=== PATIENT | male | born 1960 | race Caucasian/White ===

== ENCOUNTER 2022-07-21 15:29 | Inpatient (IN) | payer OTHER, SELFPAY ==
[2022-07-21] VITALS (12 sets, daily range): BP systolic 108–145; BP diastolic 62–86; PULSE 59–82; RESP 12–23; TEMP 35.8–36.7; O2SAT 92–98; BMI 28.0
--- NOTE | 2022-07-21 15:42 | DI.CT.S_ITS ---
PROCEDURE: CT LE LT W CON INDICATIONS: wound with concern for osteomyelitis TECHNIQUE: After the administration of intravenous contrast, 3 mm axial sections acquired of the left foot and ankle, with coronal and sagittal reformats. COMPARISON: None. FINDINGS: Image quality: Excellent. Bones: Alignment of left foot and ankle is anatomic. No acute fracture or dislocation. Mild osteoarthritic changes are noted throughout left foot and ankle joints. No suspicious bony lesion. There is subtle radiolucency and very subtle cortical erosion involving plantar aspect of 5th metatarsal head concerning for osteomyelitis in this area. No other area of bony erosion is seen. Small plantar and dorsal calcaneal enthesophytes are noted. Soft tissues: Ulceration over plantar aspect of forefoot at the level of 5th metatarsal shaft and head is seen. There is peripherally enhancing fluid collection deep to the ulceration and measures up to 3.2 x 0.6 x 1.4 cm in size concerning for abscess collection in this area. No other area of abnormal soft tissue enhancement is seen. No full-thickness tendon rupture. Plantar fascia is intact. Achilles tendon is intact. IMPRESSION: 1. Ulceration and suggestion of small abscess collection over plantar aspect of lateral forefoot near 5th metatarsal shaft and head. 2. Finding is concerning for early osteomyelitis involving plantar aspect of 5th metatarsal head. 3. No fracture or dislocation. Left foot osteoarthritis. No suspicious bony lesion. Dictated by: Joshua Young M.D. on 07/21/2022 at 16:52 Approved by: Joshua Young M.D. on 07/21/2022 at 16:56
--- NOTE | 2022-07-21 15:57 | ED.WOUNDLAC ---
HPI - Wound/Laceration <JENNIFFER Clark - Last Filed: 07/21/22 19:17> General Chief Complaint: Wound/Laceration Stated Complaint: lt foot infection, sent by Dr Campos Time Seen by Provider: 07/21/22 15:33 Source: patient Mode of arrival: Ambulatory History of Present Illness HPI narrative: This is a 61-year-old male with history of hereditary hemochromatosis, porphyria cutanea tarda, type 2 diabetes on metformin, hypertension on lisinopril and metoprolol, hyperlipidemia on atorvastatin and daily baby aspirin, actinic keratoses, surgical removal of multiple skin cancers, who presents to the emergency department today after his Podiatry appointment with Dr. Campos for his left foot wound. Dr. Campos sent patient with a disc with x-rays on it, but they were not low audible in the system. Patient reports that he has a significant infection in his left foot and was sent here for evaluation of this. Patient denies recent fever or chills, nausea or vomiting. Patient has history of elevated ferritin and has had therapeutic phlebotomies in the past and predicted to need this every 2-3 months. Related Data Home Medications Medication Instructions Recorded Confirmed aspirin 81 mg tablet,delayed 81 mg PO DAILY 08/26/20 07/22/22 release atenolol 50 mg tablet 50 mg PO DAILY 08/26/20 07/22/22 lisinopril 20 mg tablet 20 mg PO DAILY 08/26/20 07/22/22 metformin 500 mg tablet,extended 1,000 mg PO DAILY 08/26/20 07/22/22 release 24 hr atorvastatin 20 mg tablet (Lipitor) 20 mg PO DAILY 10/21/21 07/22/22 empagliflozin 10 mg tablet 20 mg PO DAILY 07/22/22 07/22/22 (Jardiance) pregabalin 75 mg capsule 150 mg 07/22/22 Allergies Allergy/AdvReac Type Severity Reaction Status Date / Time No Known Drug Allergies Allergy Verified 08/26/20 16:22 Review of Systems <JENNIFFER Clark - Last Filed: 07/21/22 19:17> Review of Systems Narrative: Review of systems is negative for acute abnormalities unless otherwise noted in HPI Patient History <JENNIFFER Clark - Last Filed: 07/21/22 19:17> Social History marital status: household members: spouse lives independently: Yes occupational status: employed Smoking Status: Former smoker alcohol intake: former Smoking Status: Never smoker alcohol intake frequency: other Substance Use Type: does not use Exam <JENNIFFER Clark - Last Filed: 07/21/22 19:17> Narrative Exam Narrative: Reviewed vitals signs and nursing notes. General: cooperative, comfortable, in no acute distress, well groomed HEENT: symmetrical facial expressions, moist mucous membranes Cardiovascular: regular rate and rhythm, no peripheral edema, warm extremities Respiratory: normal effort, able to speak in complete sentences, without wheezing, stridor, or abnormal breath sounds. No retractions or tachypnea. GI: abdomen soft, nontender to palpation, nondistended, without masses, rebound tenderness or exquisite tenderness with exam. MSK: moves all extremities, neurovascularly intact, no weakness, normal tone Skin: brisk capillary refill, without pallor or erythema Neuro: normal speech and cognition, A&O x3, ambulatory, clear speech Psych: mental status is grossly normal, congruent mood, normal affect, pleasant and cooperative Initial Vital Signs Initial Vital Signs: Vital Signs Temperature 98.1 F 07/21/22 15:33 Pulse Rate 74 07/21/22 15:33 Respiratory Rate 18 07/21/22 15:33 Blood Pressure 145/86 H 07/21/22 15:33 Pulse Oximetry 97 07/21/22 15:33 Oxygen Delivery Method 07/21/22 15:33 <Geronimo Grey DO - Last Filed: 07/22/22 01:54> Narrative Exam Narrative: Reviewed vitals signs and nursing notes. General: cooperative, comfortable, in no acute distress, well groomed HEENT: symmetrical facial expressions, moist mucous membranes Cardiovascular: regular rate and rhythm, no peripheral edema, warm extremities Respiratory: normal effort, able to speak in complete sentences, without wheezing, stridor, or abnormal breath sounds. No retractions or tachypnea. GI: abdomen soft, nontender to palpation, nondistended, without masses, rebound tenderness or exquisite tenderness with exam. MSK: moves all extremities, neurovascularly intact, no weakness, normal tone Skin: brisk capillary refill, without pallor or erythema Neuro: normal speech and cognition, A&O x3, ambulatory, clear speech Psych: mental status is grossly normal, congruent mood, normal affect, pleasant and cooperative Initial Vital Signs Initial Vital Signs: Vital Signs Temperature 98.1 F 07/21/22 15:33 Pulse Rate 74 07/21/22 15:33 Respiratory Rate 18 07/21/22 15:33 Blood Pressure 145/86 H 07/21/22 15:33 Pulse Oximetry 97 07/21/22 15:33 Oxygen Delivery Method 07/21/22 15:33 Course <JENNIFFER Clark - Last Filed: 07/21/22 19:17> Orders Ordered: ED Orders 07/21/22 17:11 Consult to Orthopedic Surgery Stat 07/21/22 17:27 XR foot LT min 3V Stat 07/21/22 17:56 Blood Culture Stat COVID19 -Nasal RAPID/Pre-Proc Stat 07/21/22 20:43 Consult to Occupational Therapy Evaluate & Treat Consult to Physical Therapy Evaluate & Treat 07/22/22 05:00 BMP [Basic Metabolic Panel] DAILY CBC Auto Diff [Complete Blood Count AUTO DIFF] DAILY 07/23/22 05:00 BMP [Basic Metabolic Panel] DAILY CBC Auto Diff [Complete Blood Count AUTO DIFF] DAILY 07/24/22 05:00 BMP [Basic Metabolic Panel] DAILY CBC Auto Diff [Complete Blood Count AUTO DIFF] DAILY Acetaminophen (Acetaminophen 325 Mg Tablet) 325 mg PO Q6HR PRN PRN Reason: Fever/Mild Pain (1-3) Hydrocodone Bitart/Acetaminophen (Hydrocodone/Acet 5/325 Tablet) 1 tab PO Q4HR PRN PRN Reason: Pain, Moderate (4-6) Last Admin: 07/21/22 18:07 Dose: 1 tab Documented By: CATIA Atenolol (Atenolol 50 Mg Tablet) 50 mg PO DAILY [facility] Atorvastatin Calcium (Atorvastatin 20 Mg Tablet) 20 mg PO DAILY [facility] Dextrose (Dextrose 50 % In Water 25 Gm/50 Ml Syringe) 25 gm IV PRN PRN PRN Reason: Hypoglycemia Dextrose (Dextrose 50 % In Water 25 Gm/50 Ml Syringe) 25 gm IV PRN PRN PRN Reason: Hypoglycemia Docusate Sodium (Docusate 100 Mg Capsule) 100 mg PO BID [facility] Last Admin: 07/21/22 22:40 Dose: 100 mg Documented By: Duloxetine HCl (Duloxetine 20 Mg Capsule) 40 mg PO DAILY [facility] Heparin Sodium (Porcine) (Heparin 5,000 Unit/Ml Vial) 5,000 unit SUBCUT BID [facility] Last Admin: 07/21/22 22:41 Dose: 5,000 unit Documented By: Hydromorphone HCl (Hydromorphone 1 Mg Inj) 0.2 mg IV Q1H PRN PRN Reason: Pain, Mild (1-3) Metronidazole (Flagyl) 500 mg in 100 mls @ 100 mls/hr IV Q8H [facility] Last Admin: 07/21/22 18:29 Dose: 100 mls/hr Documented By: CATIA Cefepime HCl 2 gm/ Sodium (Chloride) 100 mls @ 200 mls/hr IV Q8H [facility] Last Admin: 07/22/22 01:35 Dose: 200 mls/hr Documented By: Infusion: 07/21/22 18:28 Dose: 0 mls/hr Documented By: Admin: 07/21/22 17:58 Dose: 200 mls/hr Documented By: CATIA Lactated Ringer's (Lactated Ringers) 1,000 mls @ 42 mls/hr IV NOW ONE Stop: 07/22/22 19:17 Last Infusion: 07/21/22 20:39 Dose: 42 mls/hr Documented By: Admin: 07/21/22 19:30 Dose: 42 mls/hr Documented By: LYNDSAY Vancomycin HCl/Dextrose (Vancomycin) 2,000 mg in 400 mls @ 200 mls/hr IV Q12H [facility] Insulin Human Lispro (Insulin Lispro 100 Unit/Ml 3ml Vial) 0 unit SUBCUT [facility]; Protocol Last Admin: 07/21/22 22:28 Dose: Not Given Documented By: Insulin Human Lispro (Insulin Lispro 100 Unit/Ml 3ml Vial) 0 unit SUBCUT ACHS [facility]; Protocol Last Admin: 07/21/22 22:30 Dose: Not Given Documented By: Lisinopril (Lisinopril 20 Mg Tablet) 20 mg PO DAILY [facility] Naloxone HCl (Naloxone 0.4 Mg/Ml Vial) 0.2 mg IV Q2MIN PRN PRN Reason: Opiate Reversal Ondansetron HCl (Ondansetron 4 Mg Odt) 4 mg PO Q4HR PRN PRN Reason: Nausea And Vomiting Ondansetron HCl (Ondansetron 4 Mg/2 Ml Inj) 4 mg IV Q4HR PRN PRN Reason: Nausea And Vomiting Oxycodone HCl (Oxycodone Ir 5 Mg Tablet) 5 mg PO Q3HR PRN PRN Reason: Pain, Mild (1-3) Discontinued Medications Acetaminophen (Acetaminophen 325 Mg Tablet) 975 mg PO PACUNOW PRN PRN Reason: Pain, Mild (1-3) Bupivacaine HCl/Epinephrine Bitart (Bupivacaine 0.5% W/ Epi (Pf) 30 Ml Vial) 30 ml INJ NOW ONE Stop: 07/21/22 20:19 Last Admin: 07/21/22 20:19 Dose: 10 ml Documented By: CC Dextrose (Dextrose 50 % In Water 25 Gm/50 Ml Syringe) 25 gm IV PRN PRN PRN Reason: Hypoglycemia Hydromorphone HCl (Hydromorphone 2 Mg Inj) 0 mg IV Q5M PRN PRN Reason: Pain, Moderate (4-6) Vancomycin HCl (Vancomycin) 1,250 mg in 250 mls @ 250 mls/hr IV Q12H [facility] Vancomycin HCl (Vancomycin) 1,000 mg in 200 mls @ 200 mls/hr IV NOW ONE Stop: 07/21/22 20:15 Last Admin: 07/21/22 19:30 Dose: 200 mls/hr Documented By: LYNDSAY Vancomycin HCl (Vancomycin) 1,250 mg in 250 mls @ 250 mls/hr IV Q12H [facility] Vancomycin HCl (Vancomycin) 1,000 mg in 200 mls @ 200 mls/hr IV NOW ONE Stop: 07/21/22 21:09 Last Admin: 07/21/22 19:25 Dose: 200 mls/hr Documented By: COURTNEY Vancomycin HCl (Vancomycin) 1,000 mg in 200 mls @ 200 mls/hr IV NOW ONE Stop: 07/21/22 22:59 Last Infusion: 07/22/22 00:00 Dose: 0 mls/hr Documented By: Admin: 07/21/22 22:41 Dose: 200 mls/hr Documented By: Ondansetron HCl (Ondansetron 4 Mg/2 Ml Inj) 4 mg IV NOW PRN PRN Reason: Nausea And Vomiting Oxycodone HCl (Oxycodone Ir 5 Mg Tablet) 5 mg PO PACUNOW PRN PRN Reason: Mild or moderate pain Vancomycin HCl (Vancomycin Per Pharmacy) 1 request MISC NOW ONE Stop: 07/21/22 17:32 Last Admin: 07/21/22 22:49 Dose: Not Given Documented By: Vancomycin HCl (Vancomycin Trough) 1 request MISC NOW ONE Stop: 07/23/22 06:31 Consultations Consultation #1: Consultation with Dr. Sneed at 17:15 who accepts patient and will take to surgery tonight. Patient has been NPO since 11:00 o'clock, she requests x-ray images of patient's foot Vital Signs Vital signs: Vital Signs - 8 hr 07/21/22 15:33 Temperature 98.1 F Pulse Rate 74 Respiratory Rate 18 Blood Pressure 145/86 H Pulse Oximetry 97 Oxygen Delivery Method Room Air <Geronimo Grey DO - Last Filed: 07/22/22 01:54> Orders Ordered: ED Orders 07/21/22 17:11 Consult to Orthopedic Surgery Stat 07/21/22 17:27 XR foot LT min 3V Stat 07/21/22 17:56 Blood Culture Stat COVID19 -Nasal RAPID/Pre-Proc Stat 07/21/22 20:43 Consult to Occupational Therapy Evaluate & Treat Consult to Physical Therapy Evaluate & Treat 07/22/22 05:00 BMP [Basic Metabolic Panel] DAILY CBC Auto Diff [Complete Blood Count AUTO DIFF] DAILY 07/23/22 05:00 BMP [Basic Metabolic Panel] DAILY CBC Auto Diff [Complete Blood Count AUTO DIFF] DAILY 07/24/22 05:00 BMP [Basic Metabolic Panel] DAILY CBC Auto Diff [Complete Blood Count AUTO DIFF] DAILY Acetaminophen (Acetaminophen 325 Mg Tablet) 325 mg PO Q6HR PRN PRN Reason: Fever/Mild Pain (1-3) Hydrocodone Bitart/Acetaminophen (Hydrocodone/Acet 5/325 Tablet) 1 tab PO Q4HR PRN PRN Reason: Pain, Moderate (4-6) Last Admin: 07/21/22 18:07 Dose: 1 tab Documented By: CATIA Atenolol (Atenolol 50 Mg Tablet) 50 mg PO DAILY [facility] Atorvastatin Calcium (Atorvastatin 20 Mg Tablet) 20 mg PO DAILY [facility] Dextrose (Dextrose 50 % In Water 25 Gm/50 Ml Syringe) 25 gm IV PRN PRN PRN Reason: Hypoglycemia Dextrose (Dextrose 50 % In Water 25 Gm/50 Ml Syringe) 25 gm IV PRN PRN PRN Reason: Hypoglycemia Docusate Sodium (Docusate 100 Mg Capsule) 100 mg PO BID [facility] Last Admin: 07/21/22 22:40 Dose: 100 mg Documented By: Duloxetine HCl (Duloxetine 20 Mg Capsule) 40 mg PO DAILY [facility] Heparin Sodium (Porcine) (Heparin 5,000 Unit/Ml Vial) 5,000 unit SUBCUT BID [facility] Last Admin: 07/21/22 22:41 Dose: 5,000 unit Documented By: Hydromorphone HCl (Hydromorphone 1 Mg Inj) 0.2 mg IV Q1H PRN PRN Reason: Pain, Mild (1-3) Metronidazole (Flagyl) 500 mg in 100 mls @ 100 mls/hr IV Q8H [facility] Last Admin: 07/21/22 18:29 Dose: 100 mls/hr Documented By: CATIA Cefepime HCl 2 gm/ Sodium (Chloride) 100 mls @ 200 mls/hr IV Q8H [facility] Last Admin: 07/22/22 01:35 Dose: 200 mls/hr Documented By: Infusion: 07/21/22 18:28 Dose: 0 mls/hr Documented By: Admin: 07/21/22 17:58 Dose: 200 mls/hr Documented By: CATIA Lactated Ringer's (Lactated Ringers) 1,000 mls @ 42 mls/hr IV NOW ONE Stop: 07/22/22 19:17 Last Infusion: 07/21/22 20:39 Dose: 42 mls/hr Documented By: Admin: 07/21/22 19:30 Dose: 42 mls/hr Documented By: LYNDSAY Vancomycin HCl/Dextrose (Vancomycin) 2,000 mg in 400 mls @ 200 mls/hr IV Q12H [facility] Insulin Human Lispro (Insulin Lispro 100 Unit/Ml 3ml Vial) 0 unit SUBCUT ACHS [facility]; Protocol Last Admin: 07/21/22 22:28 Dose: Not Given Documented By: Insulin Human Lispro (Insulin Lispro 100 Unit/Ml 3ml Vial) 0 unit SUBCUT ACHS [facility]; Protocol Last Admin: 07/21/22 22:30 Dose: Not Given Documented By: Lisinopril (Lisinopril 20 Mg Tablet) 20 mg PO DAILY [facility] Naloxone HCl (Naloxone 0.4 Mg/Ml Vial) 0.2 mg IV Q2MIN PRN PRN Reason: Opiate Reversal Ondansetron HCl (Ondansetron 4 Mg Odt) 4 mg PO Q4HR PRN PRN Reason: Nausea And Vomiting Ondansetron HCl (Ondansetron 4 Mg/2 Ml Inj) 4 mg IV Q4HR PRN PRN Reason: Nausea And Vomiting Oxycodone HCl (Oxycodone Ir 5 Mg Tablet) 5 mg PO Q3HR PRN PRN Reason: Pain, Mild (1-3) Discontinued Medications Acetaminophen (Acetaminophen 325 Mg Tablet) 975 mg PO PACUNOW PRN PRN Reason: Pain, Mild (1-3) Bupivacaine HCl/Epinephrine Bitart (Bupivacaine 0.5% W/ Epi (Pf) 30 Ml Vial) 30 ml INJ NOW ONE Stop: 07/21/22 20:19 Last Admin: 07/21/22 20:19 Dose: 10 ml Documented By: JUAN JOSE Dextrose (Dextrose 50 % In Water 25 Gm/50 Ml Syringe) 25 gm IV PRN PRN PRN Reason: Hypoglycemia Hydromorphone HCl (Hydromorphone 2 Mg Inj) 0 mg IV Q5M PRN PRN Reason: Pain, Moderate (4-6) Vancomycin HCl (Vancomycin) 1,250 mg in 250 mls @ 250 mls/hr IV Q12H [facility] Vancomycin HCl (Vancomycin) 1,000 mg in 200 mls @ 200 mls/hr IV NOW ONE Stop: 07/21/22 20:15 Last Admin: 07/21/22 19:30 Dose: 200 mls/hr Documented By: LYNDSAY Vancomycin HCl (Vancomycin) 1,250 mg in 250 mls @ 250 mls/hr IV Q12H [facility] Vancomycin HCl (Vancomycin) 1,000 mg in 200 mls @ 200 mls/hr IV NOW ONE Stop: 07/21/22 21:09 Last Admin: 07/21/22 19:25 Dose: 200 mls/hr Documented By: COURTNEY Vancomycin HCl (Vancomycin) 1,000 mg in 200 mls @ 200 mls/hr IV NOW ONE Stop: 07/21/22 22:59 Last Infusion: 07/22/22 00:00 Dose: 0 mls/hr Documented By: Admin: 07/21/22 22:41 Dose: 200 mls/hr Documented By: Ondansetron HCl (Ondansetron 4 Mg/2 Ml Inj) 4 mg IV NOW PRN PRN Reason: Nausea And Vomiting Oxycodone HCl (Oxycodone Ir 5 Mg Tablet) 5 mg PO PACUNOW PRN PRN Reason: Mild or moderate pain Vancomycin HCl (Vancomycin Per Pharmacy) 1 request MISC NOW ONE Stop: 07/21/22 17:32 Last Admin: 07/21/22 22:49 Dose: Not Given Documented By: Vancomycin HCl (Vancomycin Trough) 1 request MISC NOW ONE Stop: 07/23/22 06:31 Vital Signs Vital signs: Vital Signs - 8 hr 07/21/22 15:33 Temperature 98.1 F Pulse Rate 74 Respiratory Rate 18 Blood Pressure 145/86 H Pulse Oximetry 97 Oxygen Delivery Method Room Air MDM - Wound/Laceration <JENNIFFER Clark - Last Filed: 07/21/22 19:17> Lab Data Result diagrams: 07/21/22 16:20 07/21/22 16:20 Labs: Lab Results 07/21/22 07/21/22 07/21/22 Range/Units 16:20 16:20 16:20 WBC 8.3 (4.5-11.0) X10^3/uL RBC 4.97 (4.5-5.9) X10^6/uL Hgb 16.1 (13.5-17.5) g/dL Hct 47.3 (41-53) % MCV 95.2 (80-100) fL MCH 32.5 (26-34) PG MCHC 34.1 (30-36) % RDW 13.7 (11.6-14.8) % Plt Count 193 (150-400) X10^3/uL Neut % (Auto) 62.5 (50-75) % Lymph % (Auto) 20.8 L (25-40) % [place] % (Auto) 12.3 (3-14) % Eos % (Auto) 3.6 (2-4) % Baso % (Auto) 0.8 (0-2) % Neut # (Auto) 5200 (6395-4238) /uL Lymph # (Auto) 1700 (1440-8063) /uL [place] # (Auto) 1000 H (0-900) /uL Eos # (Auto) 300 (0-450) /uL Baso # (Auto) 100 (0-100) /uL ESR (0-15) MM/HR PT (10.1-12.7) SECONDS INR (0.9-1.3) Sodium 138 (137-145) mmol/L Potassium 4.5 (3.4-5.1) mmol/L Chloride 104 (98-107) mmol/L Carbon Dioxide 27 (22-32) mmol/L BUN 17 (9-20) mg/dL Creatinine 1.13 (0.66-1.25) mg/dL Estimated GFR > 60 (>60) mL/min BUN/Creatinine Ratio 15.0 (6-22) Glucose 159 H (80-110) mg/dL Hemoglobin A1c (4.0-6.0) % Lactate 1.4 (0.7-2.1) mmol/L Calcium 9.4 (8.4-10.2) mg/dL Ferritin (18-464) ng/mL Total Bilirubin 0.5 (0.2-1.3) mg/dL AST 28 (17-59) IU/L ALT 30 (<50) IU/L Alkaline Phosphatase 91 (38-126) U/L C-Reactive Protein (<1.0) mg/dL Total Protein 7.4 (6.3-8.2) g/dL Albumin 4.2 (3.5-5.0) g/dL Globulin 3.2 (1.7-4.1) g/dL Albumin/Globulin Ratio 1.3 (1.0-2.8) Procalcitonin (<0.5) ng/mL 07/21/22 07/21/22 07/21/22 Range/Units 16:20 16:20 16:20 WBC (4.5-11.0) X10^3/uL RBC (4.5-5.9) X10^6/uL Hgb (13.5-17.5) g/dL Hct (41-53) % MCV (80-100) fL MCH (26-34) PG MCHC (30-36) % RDW (11.6-14.8) % Plt Count (150-400) X10^3/uL Neut % (Auto) (50-75) % Lymph % (Auto) (25-40) % [place] % (Auto) (3-14) % Eos % (Auto) (2-4) % Baso % (Auto) (0-2) % Neut # (Auto) (3324-5519) /uL Lymph # (Auto) (5661-7233) /uL [place] # (Auto) (0-900) /uL Eos # (Auto) (0-450) /uL Baso # (Auto) (0-100) /uL ESR 3 (0-15) MM/HR PT (10.1-12.7) SECONDS INR (0.9-1.3) Sodium (137-145) mmol/L Potassium (3.4-5.1) mmol/L Chloride (98-107) mmol/L Carbon Dioxide (22-32) mmol/L BUN (9-20) mg/dL Creatinine (0.66-1.25) mg/dL Estimated GFR (>60) mL/min BUN/Creatinine Ratio (6-22) Glucose (80-110) mg/dL Hemoglobin A1c 7.6 H (4.0-6.0) % Lactate (0.7-2.1) mmol/L Calcium (8.4-10.2) mg/dL Ferritin (18-464) ng/mL Total Bilirubin (0.2-1.3) mg/dL AST (17-59) IU/L ALT (<50) IU/L Alkaline Phosphatase (38-126) U/L C-Reactive Protein 2.7 H (<1.0) mg/dL Total Protein (6.3-8.2) g/dL Albumin (3.5-5.0) g/dL Globulin (1.7-4.1) g/dL Albumin/Globulin Ratio (1.0-2.8) Procalcitonin 0.06 (<0.5) ng/mL 07/21/22 07/21/22 Range/Units 16:20 16:20 WBC (4.5-11.0) X10^3/uL RBC (4.5-5.9) X10^6/uL Hgb (13.5-17.5) g/dL Hct (41-53) % MCV (80-100) fL MCH (26-34) PG MCHC (30-36) % RDW (11.6-14.8) % Plt Count (150-400) X10^3/uL Neut % (Auto) (50-75) % Lymph % (Auto) (25-40) % [place] % (Auto) (3-14) % Eos % (Auto) (2-4) % Baso % (Auto) (0-2) % Neut # (Auto) (0532-0140) /uL Lymph # (Auto) (1994-7131) /uL [place] # (Auto) (0-900) /uL Eos # (Auto) (0-450) /uL Baso # (Auto) (0-100) /uL ESR (0-15) MM/HR PT 12.2 (10.1-12.7) SECONDS INR 1.1 (0.9-1.3) Sodium (137-145) mmol/L Potassium (3.4-5.1) mmol/L Chloride (98-107) mmol/L Carbon Dioxide (22-32) mmol/L BUN (9-20) mg/dL Creatinine (0.66-1.25) mg/dL Estimated GFR (>60) mL/min BUN/Creatinine Ratio (6-22) Glucose (80-110) mg/dL Hemoglobin A1c (4.0-6.0) % Lactate (0.7-2.1) mmol/L Calcium (8.4-10.2) mg/dL Ferritin 62 (18-464) ng/mL Total Bilirubin (0.2-1.3) mg/dL AST (17-59) IU/L ALT (<50) IU/L Alkaline Phosphatase (38-126) U/L C-Reactive Protein (<1.0) mg/dL Total Protein (6.3-8.2) g/dL Albumin (3.5-5.0) g/dL Globulin (1.7-4.1) g/dL Albumin/Globulin Ratio (1.0-2.8) Procalcitonin (<0.5) ng/mL Imaging Data Extremity x-ray #1: Radiologist's Impression: PROCEDURE:? CT LE LT W CON ? INDICATIONS:? wound with concern for osteomyelitis ? TECHNIQUE:? After the administration of intravenous contrast, 3 mm axial sections acquired of the left foot and ankle, with coronal and sagittal reformats. ? ? COMPARISON:? None. ? FINDINGS:? Image quality:? Excellent.? ? Bones:? Alignment of left foot and ankle is anatomic.? No acute fracture or dislocation.? Mild osteoarthritic changes are noted throughout left foot and ankle joints.? No suspicious bony lesion.? There is subtle radiolucency and very subtle cortical erosion involving plantar aspect of 5th metatarsal head concerning for osteomyelitis in this area.? No other area of bony erosion is seen.? Small plantar and dorsal calcaneal enthesophytes are noted. ? Soft tissues:? Ulceration over plantar aspect of forefoot at the level of 5th metatarsal shaft and head is seen.? There is peripherally enhancing fluid collection deep to the ulceration and measures up to 3.2 x 0.6 x 1.4 cm in size concerning for abscess collection in this area.? No other area of abnormal soft tissue enhancement is seen.? No full-thickness tendon rupture.? Plantar fascia is intact.? Achilles tendon is intact. ? IMPRESSION:? 1. Ulceration and suggestion of small abscess collection over plantar aspect of lateral forefoot near 5th metatarsal shaft and head. 2. Finding is concerning for early osteomyelitis involving plantar aspect of 5th metatarsal head. 3. No fracture or dislocation.? Left foot osteoarthritis.? No suspicious bony lesion. ? Dictated by: Joshua Young M.D. on 07/21/2022 at 16:52 ? ? Approved by: Joshua Young M.D. on 07/21/2022 at 16:56 ? Extremity x-ray #2: Radiologist's Impression: PROCEDURE:? XR FOOT LT MIN 3V ? INDICATIONS:? osteomyelitis ? TECHNIQUE:? 3 views of the foot were acquired.? ? COMPARISON:? None. ? FINDINGS:? ? Bones:? No fractures or dislocations.? There are a few vague lucencies within the 5th metatarsal head. ? Soft tissues:? No tibiotalar joint effusion.? Achilles tendon appears normal.? Soft tissue swelling adjacent to the 5th metatarsal head. ? ? IMPRESSION:? Findings suggestive of osteomyelitis with adjacent cellulitis involving the 5th metatarsal head.? Further assessment with nonemergent MRI with and without intravenous contrast is recommended.? ? Dictated by: Juan Pablo Smith M.D. on 07/21/2022 at 17:58 ? ? Approved by: Juan Pablo Smith M.D. on 07/21/2022 at 17:59 ? MDM Narrative Medical decision making narrative: This is a 61-year-old male who was sent over from his crime laboratory analyst Dr. Campos's office for evaluation of his left foot swelling along the distal 5th metatarsal in the forefoot which has been worsening over the last 10 days. Patient denies any drainage, he has history of diabetes on metformin, CT left lower extremity shows ulceration and suggestion of small abscess collection over plantar aspect of lateral forefoot near 5th metatarsal shaft and head, finding is concerning for early osteomyelitis involving plantar aspect of 5th metatarsal head, no fracture dislocation, left foot osteoarthritis, no suspicious bony lesion. Lab work does not show any leukocytosis, anemia, or polycythemia, no electrolyte abnormalities, glucose is 159, CRP is elevated at 2.7, procalcitonin is 0.06 no elevation in total bilirubin, lactate is 1.4, patient is afebrile without tachycardia, tachypnea, or hypotension. Patient has been NPO since 11:00. Consultation with Dr. Sneed who requests x-ray images, they were sent over on a disc from Dr. Campos's office but radiology was not able to load them. He is pending his plain films of his left foot, Dr. Molina hospitalist was called and he accepts patient for admission. <Geronimo Grey, DO - Last Filed: 07/22/22 01:54> Lab Data Labs: Lab Results 07/21/22 07/21/22 07/21/22 Range/Units 16:20 16:20 16:20 WBC 8.3 (4.5-11.0) X10^3/uL RBC 4.97 (4.5-5.9) X10^6/uL Hgb 16.1 (13.5-17.5) g/dL Hct 47.3 (41-53) % MCV 95.2 (80-100) fL MCH 32.5 (26-34) PG MCHC 34.1 (30-36) % RDW 13.7 (11.6-14.8) % Plt Count 193 (150-400) X10^3/uL Neut % (Auto) 62.5 (50-75) % Lymph % (Auto) 20.8 L (25-40) % [place] % (Auto) 12.3 (3-14) % Eos % (Auto) 3.6 (2-4) % Baso % (Auto) 0.8 (0-2) % Neut # (Auto) 5200 (1305-8611) /uL Lymph # (Auto) 1700 (3369-4107) /uL [place] # (Auto) 1000 H (0-900) /uL Eos # (Auto) 300 (0-450) /uL Baso # (Auto) 100 (0-100) /uL ESR (0-15) MM/HR PT (10.1-12.7) SECONDS INR (0.9-1.3) Sodium 138 (137-145) mmol/L Potassium 4.5 (3.4-5.1) mmol/L Chloride 104 (98-107) mmol/L Carbon Dioxide 27 (22-32) mmol/L BUN 17 (9-20) mg/dL Creatinine 1.13 (0.66-1.25) mg/dL Estimated GFR > 60 (>60) mL/min BUN/Creatinine Ratio 15.0 (6-22) Glucose 159 H (80-110) mg/dL Hemoglobin A1c (4.0-6.0) % Lactate 1.4 (0.7-2.1) mmol/L Calcium 9.4 (8.4-10.2) mg/dL Ferritin (18-464) ng/mL Total Bilirubin 0.5 (0.2-1.3) mg/dL AST 28 (17-59) IU/L ALT 30 (<50) IU/L Alkaline Phosphatase 91 (38-126) U/L C-Reactive Protein (<1.0) mg/dL Total Protein 7.4 (6.3-8.2) g/dL Albumin 4.2 (3.5-5.0) g/dL Globulin 3.2 (1.7-4.1) g/dL Albumin/Globulin Ratio 1.3 (1.0-2.8) Procalcitonin (<0.5) ng/mL 07/21/22 07/21/22 07/21/22 Range/Units 16:20 16:20 16:20 WBC (4.5-11.0) X10^3/uL RBC (4.5-5.9) X10^6/uL Hgb (13.5-17.5) g/dL Hct (41-53) % MCV (80-100) fL MCH (26-34) PG MCHC (30-36) % RDW (11.6-14.8) % Plt Count (150-400) X10^3/uL Neut % (Auto) (50-75) % Lymph % (Auto) (25-40) % [place] % (Auto) (3-14) % Eos % (Auto) (2-4) % Baso % (Auto) (0-2) % Neut # (Auto) (1981-8146) /uL Lymph # (Auto) (3463-7329) /uL [place] # (Auto) (0-900) /uL Eos # (Auto) (0-450) /uL Baso # (Auto) (0-100) /uL ESR 3 (0-15) MM/HR PT (10.1-12.7) SECONDS INR (0.9-1.3) Sodium (137-145) mmol/L Potassium (3.4-5.1) mmol/L Chloride (98-107) mmol/L Carbon Dioxide (22-32) mmol/L BUN (9-20) mg/dL Creatinine (0.66-1.25) mg/dL Estimated GFR (>60) mL/min BUN/Creatinine Ratio (6-22) Glucose (80-110) mg/dL Hemoglobin A1c 7.6 H (4.0-6.0) % Lactate (0.7-2.1) mmol/L Calcium (8.4-10.2) mg/dL Ferritin (18-464) ng/mL Total Bilirubin (0.2-1.3) mg/dL AST (17-59) IU/L ALT (<50) IU/L Alkaline Phosphatase (38-126) U/L C-Reactive Protein 2.7 H (<1.0) mg/dL Total Protein (6.3-8.2) g/dL Albumin (3.5-5.0) g/dL Globulin (1.7-4.1) g/dL Albumin/Globulin Ratio (1.0-2.8) Procalcitonin 0.06 (<0.5) ng/mL 07/21/22 07/21/22 Range/Units 16:20 16:20 WBC (4.5-11.0) X10^3/uL RBC (4.5-5.9) X10^6/uL Hgb (13.5-17.5) g/dL Hct (41-53) % MCV (80-100) fL MCH (26-34) PG MCHC (30-36) % RDW (11.6-14.8) % Plt Count (150-400) X10^3/uL Neut % (Auto) (50-75) % Lymph % (Auto) (25-40) % [place] % (Auto) (3-14) % Eos % (Auto) (2-4) % Baso % (Auto) (0-2) % Neut # (Auto) (7010-8809) /uL Lymph # (Auto) (2929-2754) /uL [place] # (Auto) (0-900) /uL Eos # (Auto) (0-450) /uL Baso # (Auto) (0-100) /uL ESR (0-15) MM/HR PT 12.2 (10.1-12.7) SECONDS INR 1.1 (0.9-1.3) Sodium (137-145) mmol/L Potassium (3.4-5.1) mmol/L Chloride (98-107) mmol/L Carbon Dioxide (22-32) mmol/L BUN (9-20) mg/dL Creatinine (0.66-1.25) mg/dL Estimated GFR (>60) mL/min BUN/Creatinine Ratio (6-22) Glucose (80-110) mg/dL Hemoglobin A1c (4.0-6.0) % Lactate (0.7-2.1) mmol/L Calcium (8.4-10.2) mg/dL Ferritin 62 (18-464) ng/mL Total Bilirubin (0.2-1.3) mg/dL AST (17-59) IU/L ALT (<50) IU/L Alkaline Phosphatase (38-126) U/L C-Reactive Protein (<1.0) mg/dL Total Protein (6.3-8.2) g/dL Albumin (3.5-5.0) g/dL Globulin (1.7-4.1) g/dL Albumin/Globulin Ratio (1.0-2.8) Procalcitonin (<0.5) ng/mL Discharge Plan Departure Patient Disposition: Admitted as Observation Clinical Impression: Osteomyelitis Qualifiers: Osteomyelitis type: unspecified type Osteomyelitis location: foot Laterality: right Qualified Code(s): M86.9 - Osteomyelitis, unspecified Diabetes mellitus Qualifiers: Diabetes mellitus type: type 2 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 This documentation has been reviewed and I agree with assessment and plan. Supervised by Geronimo Grey DO
[2022-07-21 16:43] LABS: Add Manual Diff / Slide Review NO; Basophils Absolute Auto 100 /uL (0-100); Basophils Percent Auto 0.8 % (0-2); Eosinophils Absolute Auto 300 /uL (0-450); Eosinophils Percent Auto 3.6 % (2-4); Hematocrit 47.3 % (41-53); Hemoglobin 16.1 g/dL (13.5-17.5); Lymphocytes Absolute Auto 1700 /uL (1100-4500); Lymphocytes Percent Auto 20.8 % (25-40); Mean Corpuscular HGB Conc 34.1 % (30-36); Mean Corpuscular Hemoglobin 32.5 PG (26-34); Mean Corpuscular Volume 95.2 fL (80-100); Monocytes Absolute Auto 1000 /uL (0-900); Monocytes Percent Auto 12.3 % (3-14); Neutrophils Absolute Auto 5200 /uL (1500-7000); Neutrophils Percent Auto 62.5 % (50-75); Platelet Count 193 X10^3/uL (150-400); Red Blood Cell Count 4.97 X10^6/uL (4.5-5.9); Red Cell Distribution Width 13.7 % (11.6-14.8); White Blood Cell Count 8.3 X10^3/uL (4.5-11.0)
[2022-07-21 17:21] LABS: Lactate (Lactic Acid) 1.4 mmol/L (0.7-2.1)
[2022-07-21 17:23] LABS: Alanine Aminotransferase 30 IU/L (<50); Albumin 4.2 g/dL (3.5-5.0); Albumin Globulin Ratio 1.3 (1.0-2.8); Alkaline Phosphatase 91 U/L (38-126); Aspartate Aminotransferase 28 IU/L (17-59); Bilirubin Total 0.5 mg/dL (0.2-1.3); Blood Urea Nitrogen 17 mg/dL (9-20); Calcium 9.4 mg/dL (8.4-10.2); Carbon Dioxide 27 mmol/L (22-32); Chloride 104 mmol/L (98-107); Estimated Glomerular Filt Rate > 60 mL/min (>60); Globulin 3.2 g/dL (1.7-4.1); Glucose 159 mg/dL (80-110); HEMOLYSIS 16 (0-50); Potassium 4.5 mmol/L (3.4-5.1); Sodium 138 mmol/L (137-145); Total Protein 7.4 g/dL (6.3-8.2)
[2022-07-21 17:25] LABS: C-Reactive Protein Quant 2.7 mg/dL (<1.0)
--- NOTE | 2022-07-21 17:27 | DI.RAD.S_ITS ---
PROCEDURE: XR FOOT LT MIN 3V INDICATIONS: osteomyelitis TECHNIQUE: 3 views of the foot were acquired. COMPARISON: None. FINDINGS: Bones: No fractures or dislocations. There are a few vague lucencies within the 5th metatarsal head. Soft tissues: No tibiotalar joint effusion. Achilles tendon appears normal. Soft tissue swelling adjacent to the 5th metatarsal head. IMPRESSION: Findings suggestive of osteomyelitis with adjacent cellulitis involving the 5th metatarsal head. Further assessment with nonemergent MRI with and without intravenous contrast is recommended. Dictated by: Juan Pablo Smith M.D. on 07/21/2022 at 17:58 Approved by: Juan Pablo Smith M.D. on 07/21/2022 at 17:59
[2022-07-21 17:39] LABS: Procalcitonin 0.06 ng/mL (<0.5)
[2022-07-21 17:49] LABS: Erythrocyte Sedimentation Rate 3 MM/HR (0-15)
[2022-07-21] MEDS: CEFEPIME 2 GM in SODIUM CHLORIDE 0.9% 100 ML IV (17:58)
[2022-07-21] MEDS: HYDROCODONE/ACET 5/325 TABLET 1 TAB PO (18:07)
[2022-07-21] MEDS: metroNIDAZOLE 500 MG/100 ML PIGGYBACK 100 MG IV (18:29)
[2022-07-21 18:32] LABS: COVID19 -Nasal RAPID Negative (Negative)
--- NOTE | 2022-07-21 18:44 | PM.CN ---
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 States he was out working hard in the yard last weekend for several days and had pain around his left 5th MTP joint. His took a picture of it and it showed some bruising. He has had increased swelling and pain. He saw a lawyer probate Dr. Campos today who referred him to the ER. He has diabetes type 2. He has ranged between 6 and 8.2. Last hemoglobin A1c was 3 months ago was 8.2. He is due for another 1 this week. He does state he ?cheats?. Also has a family history of diabetes. He states this is a wake-up call for him and is going to do better to control his diabetes. Meds Home Medications and Allergies Home Medications Medication Instructions Recorded Confirmed Type aspirin 81 mg tablet,delayed 81 mg PO DAILY 08/26/20 01/26/22 History release atenolol 50 mg tablet 50 mg PO DAILY 08/26/20 01/26/22 History clobetasol 0.05 % topical ointment 1 applic topical DAILY 08/26/20 01/26/22 History lisinopril 20 mg tablet 20 mg PO DAILY 08/26/20 01/26/22 History metformin 500 mg tablet,extended 1,000 mg PO DAILY 08/26/20 01/26/22 History release 24 hr duloxetine 20 mg capsule,delayed 40 mg PO DAILY 04/01/21 01/26/22 History release (Cymbalta) atorvastatin 20 mg tablet (Lipitor) 20 mg PO DAILY 10/21/21 01/26/22 History Allergies Allergy/AdvReac Type Severity Reaction Status Date / Time No Known Drug Allergies Allergy Verified 08/26/20 16:22 Review of Systems Review of Systems Narrative: No fevers chills nausea or vomiting. Endorses left foot pain and swelling. History of diabetes. No chest pain. ROS: Yes All systems reviewed with the patient and are negative except as otherwise documented Exam Vital Signs (past 8 hours): - 07/21/22 15:33 07/21/22 17:56 07/21/22 17:57 Temperature 98.1 F Pulse Rate 74 70 Respiratory Rate 18 Blood Pressure 145/86 H 139/78 Pulse Oximetry 97 98 Oxygen Delivery Method Room Air 07/21/22 17:57 07/21/22 18:00 07/21/22 18:00 Temperature Pulse Rate 71 72 Respiratory Rate Blood Pressure 128/76 Pulse Oximetry 95 95 Oxygen Delivery Method Oxygen Delivery Method Room Air Narrative Exam Narrative: Alert oriented male in no acute distress. Respiratory unlabored on room air. Lungs clear Heart regular rate and rhythm Moving upper extremities without difficulty or pain Musculoskeletal exam lower extremities. Left foot demonstrates moderate swelling at the 5th MTP joint plantarly there is a fluctuant collection with the ecchymotic areas and a small central early ulceration. There is swelling and tenderness around the MTP joint. Some erythema consistent with localized cellulitis. There are no blisters or ascending cellulitis. The calf is soft. There is a palpable dorsalis pedis pulse. Moderate Sensation is diminished globally on the plantar foot. Objective Imaging CT foot: My impression: Collection plantar 5th MTP joint concerning for ulceration. Radiologist's impression: Ulceration over plantar head aspect for foot at level of 5th metatarsal shaft and head seen. Peripheral enhancing fluid collection measures 3 x 0.6 by 1.4 concerning for abscess. Findings concerning for early osteomyelitis Left foot three views x-ray: My impression: Three views of the foot. No fractures or dislocations. Soft tissue swelling adjacent 5th metatarsal head Radiologist's impression: Findings suggestive of osteomyelitis with adjacent cellulitis involving 5th metatarsal head. Further assessment and nonemergent MRI with and without IV contrast as recommended. Labs Result Diagrams: 07/21/22 16:20 07/21/22 16:20 Labs: Laboratory Results - last 24 hr 07/21/22 07/21/22 07/21/22 16:20 16:20 16:20 WBC 8.3 RBC 4.97 Hgb 16.1 Hct 47.3 MCV 95.2 MCH 32.5 MCHC 34.1 RDW 13.7 Plt Count 193 Neut % (Auto) 62.5 Lymph % (Auto) 20.8 L [place] % (Auto) 12.3 Eos % (Auto) 3.6 Baso % (Auto) 0.8 Neut # (Auto) 5200 Lymph # (Auto) 1700 [place] # (Auto) 1000 H Eos # (Auto) 300 Baso # (Auto) 100 ESR Sodium 138 Potassium 4.5 Chloride 104 Carbon Dioxide 27 BUN 17 Creatinine 1.13 Estimated GFR > 60 BUN/Creatinine Ratio 15.0 Glucose 159 H Lactate 1.4 Calcium 9.4 Total Bilirubin 0.5 AST 28 ALT 30 Alkaline Phosphatase 91 C-Reactive Protein Total Protein 7.4 Albumin 4.2 Globulin 3.2 Albumin/Globulin Ratio 1.3 Procalcitonin SARS-CoV-2 (PCR) 07/21/22 07/21/22 07/21/22 16:20 16:20 17:56 WBC RBC Hgb Hct MCV MCH MCHC RDW Plt Count Neut % (Auto) Lymph % (Auto) [place] % (Auto) Eos % (Auto) Baso % (Auto) Neut # (Auto) Lymph # (Auto) [place] # (Auto) Eos # (Auto) Baso # (Auto) ESR 3 Sodium Potassium Chloride Carbon Dioxide BUN Creatinine Estimated GFR BUN/Creatinine Ratio Glucose Lactate Calcium Total Bilirubin AST ALT Alkaline Phosphatase C-Reactive Protein 2.7 H Total Protein Albumin Globulin Albumin/Globulin Ratio Procalcitonin 0.06 SARS-CoV-2 (PCR) Negative PFSH Social History marital status: lives independently: Yes occupational status: employed Tobacco & Substance Use Smoking Status: Never smoker Assessment & Plan Assessment and plan (1) Diabetes mellitus: Qualifiers: Diabetes mellitus complication detail: with foot ulcer Diabetes mellitus complication status: with skin complications 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 He has suggestion of abscess at his left 5th MTP joint. Possibly early osteomyelitis. He has been indicated for incision and debridement possible amputation as indicated. Discussed with the acute onset of his swelling and abscess my hope is that of debridement will be enough and he will be able to heal this but he may need additional wound care and prolonged antibiotics. Discussed I will evaluate the bone and if required may require partial amputation or metatarsal head excision. Discussed risk for needing additional procedures. We discussed the importance of diabetic glycemic control for healing and to avoid future amputations. He will need to be nonweightbearing on the left foot for about 4 weeks after surgery or until the incision is well healed. Discussed if he has incision breakdown or larger wound formation he may need additional wound care. Anticipate irrigation debridement tonight. He will be in the hospital a indicated for IV antibiotics. Once cultures return oral or IV antibiotics and wound care as indicated based on surgery. The risks and benefits of the procedure have been discussed with the patient even opportunity to ask questions. The risks of surgery include but are not limited to infection, malunion, nonunion, persistence of pain, damage to nerves and blood vessels, posttraumatic arthritis, DVT, PE, cardiopulmonary complications and . The patient expressed a thorough understanding of the risks and benefits of surgery and has elected to proceed. Consent was signed. COVID-19 COVID-19 status: Negative Result date/Date tested (Pos, Neg/Pending): 07/21/22 Time Spent With Patient Time with patient: 30 to 49 minutes with 50% spent counseling/coordinating care Critical Care time: I spent a total of [] minutes of critical care time on this patient's care today; this time is exclusive of procedural time.
[2022-07-21 19:13] LABS: Hemoglobin A1C% w Est Avg Glu 7.6 % (4.0-6.0)
--- NOTE | 2022-07-21 19:22 | SUR.HOLD ---
Addendum entered by Miley Madrigal R.N. 07/21/22 19:25: Vancomycin pulled by KELLI Guerin will be run during surgery per Dr. Banerjee. Original Note: NPO since 11am Sips of water with medication at 1800
[2022-07-21] MEDS: VANCOMYCIN 1,000 MG/200 ML PIGGYBACK 200 MG IV ×3 (19:25→22:41)
[2022-07-21] MEDS: LACTATED RINGERS 1,000 ML 42 ML IV (19:30)
--- NOTE | 2022-07-21 20:03 | SUR.OPER ---
Supine on padded OR bed, head on pillow, arms secured on padded arm boards at <90 degrees abduction, legs uncrossed, safety belt at waist , tape over blanket over lower right leg, left leg draped free with gel bump under left hip.
[2022-07-21 20:07] LABS: INR 1.1 (0.9-1.3); Prothrombin Time 12.2 SECONDS (10.1-12.7)
[2022-07-21] MEDS: BUPIVACAINE 0.5% W/ EPI (PF) 30 ML VIAL INJ (20:19)
--- NOTE | 2022-07-21 20:27 | PM.OP.1 ---
Operative Date/Time/Diagnoses Date of procedure: 07/21/22 Time of procedure: 20:28 Pre-op diagnosis: Left foot diabetic infection Post-op diagnosis: same Procedure & Clinicians Procedure: Incision and drainage abscess left foot diabetic infection CPT code 68940 Same procedure as scheduled: Yes Indications: Patient is a 61-year-old male with diabetes that presents with an acute swelling and ecchymosis in abscess formation at the plantar 5th metatarsal head. This occurred after working hard in the yard last week. He was indicated for operative debridement of his abscess possible bone intervention as indicated. The risks and benefits of the procedure have been discussed with the patient even opportunity to ask questions. The risks of surgery include but are not limited to infection, malunion, nonunion, persistence of pain, damage to nerves and blood vessels, posttraumatic arthritis, DVT, PE, cardiopulmonary complications and . The patient expressed a thorough understanding of the risks and benefits of surgery and has elected to proceed. Consent was signed. Surgeon: Veronica Schulz Click Yes if Unassisted: Yes Anesthesia Type: General and Local Operative Notes Findings: Abscess plantar 5th MTP joint this went down to the jump capsule but no violation. There was epidermal lysis with superficial and deep parts of the abscess and malodor. No obvious violation of the joint or bone involvement. Closure Type: primary Specimen(s): other (Abscess sent for culture) Estimated Blood Loss (mL): 10 Blood products transfused: none Tourniquet time (min): 9 Procedure in detail: Patient was seen in the preoperative area the site of surgery marked informed consent confirmed. He was brought back to the operating room by the anesthesia team positioned supine on operative table. Anesthetic was administered. A well-padded thigh tourniquet was placed. The left lower extremities prepped and draped in standard sterile fashion. A formal time-out procedure was performed confirming the patient's side and site of surgery and administration of antibiotics. This was vancomycin. All were in agreement. Attention turned to the left foot. [place] exsanguination was completed and the tourniquet elevated the thigh for 9 minutes at 250 mmHg. Attention was then turned to the plantar foot there was an area approximately 4 x 4 of the plantar ecchymosis and callus and fluctuant abscess. This was opened along the plantar lateral border taken down through the skin and subcutaneous tissue immediately a hemorrhagic purulence was encountered with malodor. Cultures were sent to microbiology. The abscess cavity was opened. This was drained and debrided it was a proximally 4 x 4 area with some tunneling and epidermal lysis plantarly. The nonviable tissue was debrided. Deep the abscess tracked down to the joint capsule and there was soft tissue small amount of fascia and outer capsule that was debrided. There was no obvious violation of the capsule and no exposed bone. This was then thoroughly irrigated with 3 L of saline and cysto tubing. Tourniquet was released hemostasis was achieved. Following this gloves were changed and clean drapes were placed down. Clean instruments were used to close the deep tissue with 2-0 PDS and skin with 3-0 nylon. Again the area plantarly of nonviable skin was removed. 10 cc of 0.5% Marcaine with epinephrine were used for local anesthetic. Dressing was placed with Xeroform gauze. Then 4 x 4 gauze Kerlix and an Juliano wrap. The patient was woken from anesthesia and taken to recovery room in good condition. There no immediate complications from procedure. All counts were correct. Complications: none Post-operative Condition: stable Disposition: PACU Plan for aftercare: Admitted to the medicine team for diabetic control and IV antibiotics. Once cultures finalize should be able to be discharged on oral antibiotic if appropriate based on the sensitivities for this soft tissue infection. Will need to be nonweightbearing or alternatively can be heel weight-bearing in the postoperative shoe with crutches. No forefoot weight-bearing. Sutures will remain in place approximately 4 weeks. Follow up in [facility] in 2 weeks for a wound check.
[2022-07-21 20:55] LABS: Ferritin 62 ng/mL (18-464)
[2022-07-21] MEDS: DOCUSATE 100 MG CAPSULE PO (22:40)
[2022-07-21] MEDS: HEPARIN 5,000 UNIT/ML VIAL 5000 UNIT SUBCUT (22:41)
[2022-07-22 00:01] VITALS: BP 120/71; PULSE 65; RESP 17; TEMP 35.9; O2SAT 94
[2022-07-22] MEDS: CEFEPIME 2 GM in SODIUM CHLORIDE 0.9% 100 ML IV ×3 (01:35→16:38)
[2022-07-22] MEDS: metroNIDAZOLE 500 MG/100 ML PIGGYBACK 100 MG IV ×3 (02:18→18:09)
[2022-07-22] MEDS: ACETAMINOPHEN 325 MG TABLET PO ×2 (02:53→21:02)
[2022-07-22] MEDS: OXYCODONE IR 5 MG TABLET PO ×2 (02:54→21:02)
--- NOTE | 2022-07-22 02:56 | P.HP_ITS ---
History of Present Illness History of Present Illness Date Patient Seen: 07/21/22 Time Patient Seen: 17:45 Chief complaint: lt foot infection, sent by Dr Campos Narrative: Warren Schulz ?is a 61-year-old male with history of hereditary hemochromatosis, porphyria cutanea tarda, NIDDM, peripheral neuropathy, hypertension, hyperlipidemia, actinic keratoses, hx of basal cell carcinoma, squamous cell carcinoma, gout, who presents to the emergency department today after his Podiatry Dr. Campos sent him to the ED for his diabetic left foot wound that has worsened. Admission exam completed after returning from the OR. Patient denies chest pain, shortness of breath, fever, body aches, chills, abdominal pain, nausea, vomiting, upper respiratory symptoms, hematuria, difficulty with urination, melena, constipation, any other recent illness injury or trauma. Patient has history of elevated ferritin and has had therapeutic phlebotomies in the past and predicted to need this every 2-3 months. Is followed by Oncology. Patient's postoperative pain is well controlled, and has no further concerns at this time. At the time of admit patient's temp 98.1?, BP 128/76, HR 82, R 16, O2 saturation 96% on room air. Patient is resting comfortably in bed in no distress at this time. Patient's CBC is within normal limits, as is CMP and liver panel with the exception of glucose 159, A1c 7.6, CRP 2.7 procalcitonin, lactic acid, COVID, an ESR are all negative. Left lower extremity CT demonstrated ulceration and suggestion of small abscess collection over plantar aspect of lateral forefoot near 5th metatarsal shaft and head, concerning for early osteomyelitis involving plantar aspect of [address] head[address] Schulz was consulted in the ED. patient admitted for surgical intervention for diabetic left foot wound ulceration of the 5th metatarsal osteomyelitis and abscess. Patient History Medical History (Updated 07/22/22 @ 03:03 by MARCO Shepherd) Actinic keratosis Essential hypertension Hereditary hemochromatosis History of basal cell carcinoma History of squamous cell carcinoma Hyperlipidemia associated with type 2 diabetes mellitus Porphyria cutanea tarda Type 2 diabetes with complication Surgical History Status post left foot surgery Family & Social History Family History Mother Cancer Squamous cell carcinoma Father Multiple myeloma Social History: household members spouse Prior Living Arrangements House lives independently Yes Safety & Behavioral: Feels Safe in Current Yes Environment Been Physically Hurt or No Threatened By a Person Tobacco & Substance use: Tobacco type cigarettes Smoking Status Former smoker alcohol intake former alcohol intake frequency other Substance Use Type does not use Meds Home Medications and Allergies Home Medications Medication Instructions Recorded Confirmed Type aspirin 81 mg tablet,delayed 81 mg PO DAILY 08/26/20 07/22/22 History release atenolol 50 mg tablet 50 mg PO DAILY 08/26/20 07/22/22 History lisinopril 20 mg tablet 20 mg PO DAILY 08/26/20 07/22/22 History metformin 500 mg tablet,extended 1,000 mg PO DAILY 08/26/20 07/22/22 History release 24 hr atorvastatin 20 mg tablet (Lipitor) 20 mg PO DAILY 10/21/21 07/22/22 History empagliflozin 10 mg tablet 20 mg PO DAILY 07/22/22 07/22/22 History (Jardiance) pregabalin 75 mg capsule 150 mg PO DAILY 07/22/22 07/22/22 History Allergies Allergy/AdvReac Type Severity Reaction Status Date / Time No Known Drug Allergies Allergy Verified 08/26/20 16:22 Review of Systems Review of Systems Narrative: All 12 point systems reviewed with the patient and are negative except otherwise documented. Exam Vital Signs (past 8 hours): - 07/21/22 19:08 07/21/22 20:27 07/21/22 20:32 Temperature 98.1 F 97.2 F L Pulse Rate 82 81 80 Respiratory Rate 16 23 12 Blood Pressure 108/62 120/70 Pulse Oximetry 96 94 94 Oxygen Delivery Method Room Air Room Air Room Air Oxygen Flow Rate 07/21/22 20:38 07/21/22 21:15 07/21/22 21:45 Temperature 97.1 F L 97.0 F L Pulse Rate 78 74 62 Respiratory Rate 22 16 16 Blood Pressure 125/74 124/78 120/70 Pulse Oximetry 94 95 92 Oxygen Delivery Method Room Air Oxygen Flow Rate 0 0 07/21/22 22:15 07/21/22 23:15 07/22/22 00:01 Temperature 96.7 F L 96.4 F L 96.7 F L Pulse Rate 59 L 65 65 Respiratory Rate 16 17 17 Blood Pressure 119/70 124/70 120/71 Pulse Oximetry 95 95 94 Oxygen Delivery Method Oxygen Flow Rate 0 0 0 Oxygen Delivery Method Room Air Oxygen Flow Rate 0 Narrative Exam Narrative: General: Patient is a well-developed, well-nourished in no distress at this t patrice. HEENT: Normocephalic, atraumatic, extraocular muscles intact, oral pharynx is clear and mucous membranes are moist. Neck is supple and symmetric, trachea is midline, no adenopathy, no thyroid enlargement, nontender, no masses palpated. Negative for JVD Chest: Normal AP diameter and contour without kyphoscoliosis, no nasal flaring, retractions, or tachypneic labored breathing. Lungs: Auscultation of all lung thomas are clear without adventitious sounds, wheezes, rhonchi, or rales. Cardio: S1 & S2 with regular rate and rhythm without murmur, rubs, or gallops, no carotid bruit, no cardiac pulsations present. Abdomen: Soft nontender, negative for organomegaly, or masses. Bowel sounds are present in all 4 quadrants without guarding or rebound, no CVA tenderness. Musculoskeletal: Left ankle & foot are are bandaged and splinted, pedal pulse intact. Muscle strength and tone are equal within normal limits, no deformity, crepitus, effusions, cyanosis, clubbing or edema present. Full range of motion intact radial and pedal pulses are normal. Skin: Warm dry and intact without rashes, ulcerations or petechiae. Neuro: Alert and orientated x3, sensation to touch intact, no gross deficits noted of cranial nerves. Psych: Patient has a well-kept appearance, appropriate affect, mental status attitude thought context and judgment are appropriate for age. Objective Labs Result Diagrams: 07/21/22 16:20 07/21/22 16:20 Labs: Laboratory Results - last 24 hr 07/21/22 07/21/22 07/21/22 16:20 16:20 16:20 WBC 8.3 RBC 4.97 Hgb 16.1 Hct 47.3 MCV 95.2 MCH 32.5 MCHC 34.1 RDW 13.7 Plt Count 193 Neut % (Auto) 62.5 Lymph % (Auto) 20.8 L [place] % (Auto) 12.3 Eos % (Auto) 3.6 Baso % (Auto) 0.8 Neut # (Auto) 5200 Lymph # (Auto) 1700 [place] # (Auto) 1000 H Eos # (Auto) 300 Baso # (Auto) 100 ESR PT INR Sodium 138 Potassium 4.5 Chloride 104 Carbon Dioxide 27 BUN 17 Creatinine 1.13 Estimated GFR > 60 BUN/Creatinine Ratio 15.0 Glucose 159 H Hemoglobin A1c Lactate 1.4 Calcium 9.4 Ferritin Total Bilirubin 0.5 AST 28 ALT 30 Alkaline Phosphatase 91 C-Reactive Protein Total Protein 7.4 Albumin 4.2 Globulin 3.2 Albumin/Globulin Ratio 1.3 Procalcitonin SARS-CoV-2 (PCR) 07/21/22 07/21/22 07/21/22 16:20 16:20 16:20 WBC RBC Hgb Hct MCV MCH MCHC RDW Plt Count Neut % (Auto) Lymph % (Auto) [place] % (Auto) Eos % (Auto) Baso % (Auto) Neut # (Auto) Lymph # (Auto) [place] # (Auto) Eos # (Auto) Baso # (Auto) ESR 3 PT INR Sodium Potassium Chloride Carbon Dioxide BUN Creatinine Estimated GFR BUN/Creatinine Ratio Glucose Hemoglobin A1c 7.6 H Lactate Calcium Ferritin Total Bilirubin AST ALT Alkaline Phosphatase C-Reactive Protein 2.7 H Total Protein Albumin Globulin Albumin/Globulin Ratio Procalcitonin 0.06 SARS-CoV-2 (PCR) 07/21/22 07/21/22 07/21/22 16:20 16:20 17:56 WBC RBC Hgb Hct MCV MCH MCHC RDW Plt Count Neut % (Auto) Lymph % (Auto) [place] % (Auto) Eos % (Auto) Baso % (Auto) Neut # (Auto) Lymph # (Auto) [place] # (Auto) Eos # (Auto) Baso # (Auto) ESR PT 12.2 INR 1.1 Sodium Potassium Chloride Carbon Dioxide BUN Creatinine Estimated GFR BUN/Creatinine Ratio Glucose Hemoglobin A1c Lactate Calcium Ferritin 62 Total Bilirubin AST ALT Alkaline Phosphatase C-Reactive Protein Total Protein Albumin Globulin Albumin/Globulin Ratio Procalcitonin SARS-CoV-2 (PCR) Negative Assessment & Plan Assessment & Plan narrative: Warren Menchacais a 61-year-old male with history of hereditary hemochromatosis, porphyria cutanea tarda, NIDDM, peripheral neuropathy, hypertension, hyperlipidemia, actinic keratoses, hx of basal cell carcinoma, squamous cell carcinoma,gout, who 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 Patient admitted for surgical consult for left foot 5th metatarsal osteomyelitis lower extremity ulceration and small abscess. 1. NIDDM left foot chronic ulceration, 5th metatarsal osteomyelitis, small abscess, with peripheral neuropathy, acute on chronic, present on admission - Foot Ulcer-Managed by Dr. Schulz -Dr. Sneed to take patient to the OR-?acute swelling and ecchymosis in absces s formation at the plantar 5th metatarsal head. -vancomycin, Flagyl and cefepime -patient admitted under diabetic protocol, blood sugar checks a.c. HS, sliding scale -A1C ordered -pain management -Hold Metformin, Jardiance -Continue Lyrica 2. Essential hypertension, acute on chronic, present on admission -continue atenolol, lisinopril, ASA 3. Hyperlipidemia secondary to type 2 diabetes, chronic, present on admission -continue Lipitor Code status:Full Surrogate decision maker: Makayla Schulz COVJUANCARLOS PCR:Negative DVT/VTE prophylaxis:Medication initially held for surgery Right Scd only Disposition: Patient admitted for surgical intervention, expected length of stay greater than 2 midnights I have utilized all available immediate resources to obtain, update, or review the patient's current medications. I confirmed that the patient's advanced care plan is present, Code status is d ocumented and/or surrogate decision maker is listed in the patient's medical record. ? Time Spent With Patient Critical Care time: I spent a total of [] minutes of critical care time on this patient's care today; this time is exclusive of procedural time. Quality VTE Deep Vein Thrombosis/Pulmonary Embolism Present on Admission: No
[2022-07-22 04:00] VITALS: BP 130/62; PULSE 63; RESP 17; TEMP 36.6; O2SAT 96
[2022-07-22 05:59] LABS: Add Manual Diff / Slide Review NO; Basophils Absolute Auto 100 /uL (0-100); Basophils Percent Auto 0.9 % (0-2); Eosinophils Absolute Auto 300 /uL (0-450); Eosinophils Percent Auto 3.9 % (2-4); Lymphocytes Absolute Auto 1300 /uL (1100-4500); Lymphocytes Percent Auto 19.1 % (25-40); Mean Corpuscular HGB Conc 34.9 % (30-36); Mean Corpuscular Hemoglobin 33.2 PG (26-34); Mean Corpuscular Volume 95.2 fL (80-100); Monocytes Absolute Auto 700 /uL (0-900); Monocytes Percent Auto 10.1 % (3-14); Neutrophils Absolute Auto 4400 /uL (1500-7000); Platelet Count 143 X10^3/uL (150-400); Red Blood Cell Count 4.51 X10^6/uL (4.5-5.9); Red Cell Distribution Width 13.7 % (11.6-14.8); White Blood Cell Count 6.7 X10^3/uL (4.5-11.0)
[2022-07-22 06:09] LABS: BUN Creatinine Ratio 12.8 (6-22); Blood Urea Nitrogen 11 mg/dL (9-20); Calcium 8.2 mg/dL (8.4-10.2); Carbon Dioxide 26 mmol/L (22-32); Chloride 107 mmol/L (98-107); Estimated Glomerular Filt Rate > 60 mL/min (>60); Glucose 127 mg/dL (80-110); HEMOLYSIS < 15 (0-50); Potassium 4.3 mmol/L (3.4-5.1); Sodium 138 mmol/L (137-145)
--- NOTE | 2022-07-22 07:40 | P.PN_ITS ---
Subjective Subjective Date Patient Seen: 07/22/22 Time Patient Seen: 07:40 Interval history: Pt resting comfortably in bed, has not been OOB yet following surgery. Feeling well, would like to go home when possible. Exam Vital Signs (past 8 hours): - 07/22/22 00:01 07/22/22 04:00 Temperature 96.7 F L 97.9 F Pulse Rate 65 63 Respiratory Rate 17 17 Blood Pressure 120/71 130/62 Pulse Oximetry 94 96 Oxygen Flow Rate 0 0 Oxygen Delivery Method Room Air Oxygen Flow Rate 0 Narrative Exam Narrative: Intraoperative wound cultures pending. No sensation to touch along toes, but pt states this is baseline for him. Wiggles toes without difficulty. Brisk capillary refill, calf soft and compressible. Objective Labs Result Diagrams: 07/22/22 05:43 07/22/22 05:43 Labs: Laboratory Results - last 24 hr 07/21/22 07/21/22 07/21/22 16:20 16:20 16:20 WBC 8.3 RBC 4.97 Hgb 16.1 Hct 47.3 MCV 95.2 MCH 32.5 MCHC 34.1 RDW 13.7 Plt Count 193 Neut % (Auto) 62.5 Lymph % (Auto) 20.8 L [place] % (Auto) 12.3 Eos % (Auto) 3.6 Baso % (Auto) 0.8 Neut # (Auto) 5200 Lymph # (Auto) 1700 [place] # (Auto) 1000 H Eos # (Auto) 300 Baso # (Auto) 100 ESR PT INR Sodium 138 Potassium 4.5 Chloride 104 Carbon Dioxide 27 BUN 17 Creatinine 1.13 Estimated GFR > 60 BUN/Creatinine Ratio 15.0 Glucose 159 H Hemoglobin A1c Lactate 1.4 Calcium 9.4 Ferritin Total Bilirubin 0.5 AST 28 ALT 30 Alkaline Phosphatase 91 C-Reactive Protein Total Protein 7.4 Albumin 4.2 Globulin 3.2 Albumin/Globulin Ratio 1.3 Procalcitonin SARS-CoV-2 (PCR) 07/21/22 07/21/22 07/21/22 16:20 16:20 16:20 WBC RBC Hgb Hct MCV MCH MCHC RDW Plt Count Neut % (Auto) Lymph % (Auto) [place] % (Auto) Eos % (Auto) Baso % (Auto) Neut # (Auto) Lymph # (Auto) [place] # (Auto) Eos # (Auto) Baso # (Auto) ESR 3 PT INR Sodium Potassium Chloride Carbon Dioxide BUN Creatinine Estimated GFR BUN/Creatinine Ratio Glucose Hemoglobin A1c 7.6 H Lactate Calcium Ferritin Total Bilirubin AST ALT Alkaline Phosphatase C-Reactive Protein 2.7 H Total Protein Albumin Globulin Albumin/Globulin Ratio Procalcitonin 0.06 SARS-CoV-2 (PCR) 07/21/22 07/21/22 07/21/22 16:20 16:20 17:56 WBC RBC Hgb Hct MCV MCH MCHC RDW Plt Count Neut % (Auto) Lymph % (Auto) [place] % (Auto) Eos % (Auto) Baso % (Auto) Neut # (Auto) Lymph # (Auto) [place] # (Auto) Eos # (Auto) Baso # (Auto) ESR PT 12.2 INR 1.1 Sodium Potassium Chloride Carbon Dioxide BUN Creatinine Estimated GFR BUN/Creatinine Ratio Glucose Hemoglobin A1c Lactate Calcium Ferritin 62 Total Bilirubin AST ALT Alkaline Phosphatase C-Reactive Protein Total Protein Albumin Globulin Albumin/Globulin Ratio Procalcitonin SARS-CoV-2 (PCR) Negative 07/22/22 07/22/22 05:43 05:43 WBC 6.7 RBC 4.51 Hgb 15.0 Hct 43.0 MCV 95.2 MCH 33.2 MCHC 34.9 RDW 13.7 Plt Count 143 L Neut % (Auto) 66.0 Lymph % (Auto) 19.1 L [place] % (Auto) 10.1 Eos % (Auto) 3.9 Baso % (Auto) 0.9 Neut # (Auto) 4400 Lymph # (Auto) 1300 [place] # (Auto) 700 Eos # (Auto) 300 Baso # (Auto) 100 ESR PT INR Sodium 138 Potassium 4.3 Chloride 107 Carbon Dioxide 26 BUN 11 Creatinine 0.86 Estimated GFR > 60 BUN/Creatinine Ratio 12.8 Glucose 127 H Hemoglobin A1c Lactate Calcium 8.2 L Ferritin Total Bilirubin AST ALT Alkaline Phosphatase C-Reactive Protein Total Protein Albumin Globulin Albumin/Globulin Ratio Procalcitonin SARS-CoV-2 (PCR) [facility] Medical History (Updated 07/22/22 @ 03:03 by LUBNA Shepherd-EDWIGE) Actinic keratosis Essential hypertension Hereditary hemochromatosis History of basal cell carcinoma History of squamous cell carcinoma Hyperlipidemia associated with type 2 diabetes mellitus Porphyria cutanea tarda Type 2 diabetes with complication Surgical History Status post left foot surgery Family History Mother Cancer Squamous cell carcinoma Father Multiple myeloma Social History marital status: household members: spouse lives independently: Yes occupational status: employed Smoking Status: Former smoker alcohol intake: former Assessment & Plan Post-op Assessment and plan (1) Status post left foot surgery: Assessment and Plan narrative: Once cultures finalize should be able to be discharged on oral antibiotic if appropriate based on the sensitivities for this soft tissue infection.? Will need to be nonweightbearing to LLE or alternatively can be heel weight-bearing in the postoperative shoe with crutches.? No forefoot weight-bearing.? Sutures will remain in place approximately 4 weeks.? Follow up in Orthopedic Clinic in 2 weeks for a wound check. Postoperative Procedures: Procedures Operation Date: 07/21/22 19:30 Actual Procedure Side Surgeon p Incision and Drainage Wound/Extremity left foot Left Veronica Schulz MD Postoperative day: 1 Quality VTE Deep Vein Thrombosis/Pulmonary Embolism Present on Admission: No
[2022-07-22] MEDS: ATORVASTATIN 20 MG TABLET PO (08:14)
[2022-07-22] MEDS: DULOXETINE 20 MG CAPSULE 40 MG PO (08:15)
[2022-07-22] MEDS: HYDROCODONE/ACET 5/325 TABLET 1 TAB PO ×2 (08:15→16:39)
[2022-07-22] MEDS: DOCUSATE 100 MG CAPSULE PO ×2 (08:15→21:01)
[2022-07-22] MEDS: HEPARIN 5,000 UNIT/ML VIAL 5000 UNIT SUBCUT ×2 (08:16→21:01)
[2022-07-22 08:21] VITALS: BP 130/85; PULSE 77
[2022-07-22] MEDS: lisinopriL 20 MG TABLET PO (08:21)
[2022-07-22] MEDS: atenoloL 50 MG TABLET PO (08:21)
--- NOTE | 2022-07-22 09:14 | CM.DANOTE ---
DCP Assessment: Payor confirmed: Renea Hayes PCP: Emigdio Herring MD Pt is a 61 y.o. M who presented to the ED following his podiatry appointment for left foot wound. Dr. Campos sent him to ER for severe infection. Pt has a PMH of hemochromatosis, Type 2 DM, HTN< and hyperlipidemia. Dr. Schulz took pt to OR for management of abscess. Culture obtained. Awaiting results. Per PA, once resulted, the pt should be able to discharge on oral abx depending on sensitivities. Pt admitted to the floor for further management. DCP met with pt this morning to discuss discharge needs. Pt sitting up in bed watching TV. DCP introduced herself and role. Pt verbalized that he lives in a single story home with his , Makayla, in [place]. Pt states that he is independent at baseline and denies DME use. Pt states that he still drives and is planning to drive himself home upon discharge. Pt still actively employed. Pt has no discharge needs at this time. DCP verbalized that depending on culture result, pt could need IV abx, however, is not expecting that. DCP verbalized that she would be in charge of helping set that up. Pt verbalized understanding. No further needs at this time. Whiteboard updated and instructed to call with any questions or concerns. P: Once cultures result, pt to discharge home via POV on oral abx. R/O need for IV abx. Abbey Sharma RN/HORACIO Discharge Planning/Care Management Advanced directive, confirm from FAMILY Start: 07/21/22 23:40 Freq: Q24H Status: Active Protocol: Document 07/21/22 23:40 (Rec: 07/22/22 02:32 [id number]) Advance Directive, confirm on record Time 23:40 Person contacted patient Copy received No CM Discharge Assessment Start: 07/22/22 09:13 Freq: Status: Active Protocol: Document 07/22/22 09:14 IBAN (Rec: 07/22/22 09:14 IBAN [id number]) Discharge Planning Assessment Assigned Guest Laundry Attendant Abbey Sharma RN/HORACIO Advance Directives? Yes Advance Directives on File No History Provided By Patient Prior Living Arrangements House Household Members spouse Type of transporation used prior to Drives own vehicle admit Independent with ADL's Yes Is patient alert and oriented? Yes Caregiver for Another No Discharge Plan Home Referrals Initiated None needed Additional Comment At this time. R/O IV abx once culture results Whiteboard Updated in Patient Room with Yes name and ext. # of Guest Laundry Attendant Comment Instructed to call Review Status In Process Please Provide Date Initial DC 07/22/22 Assessment Was Performed Next Review Type Continued Stay Review
[2022-07-22] MEDS: VANCOMYCIN 1,250 MG/250 ML PIGGYBACK 250 MG IV (11:49)
[2022-07-22 14:00] VITALS: BP 128/68; PULSE 65; RESP 18; TEMP 36.4; O2SAT 97
[2022-07-22 15:17] VITALS: BMI 28.0
--- NOTE | 2022-07-22 15:25 | PT.IIE ---
Current Diagnoses Type 2 diabetes mellitus with foot ulcer (07/21/22) Type 2 diabetes mellitus with other skin complications (07/21/22) Local infection of the skin and subcutaneous tissue, unspecified (07/21/22) Non-pressure chronic ulcer of other part of unspecified foot with unspecified severity (07/21/22) Other specified postprocedural states (07/21/22) Surgery Performed Operation Date: 07/21/22 19:30 Actual Procedures p Incision and Drainage Wound/Extremity left foot (Left) - Veronica Schulz MD Surgical History (Last Reviewed 07/22/22 @ 03:06 [facility] Status post left foot surgery Medical History (Last Updated 07/22/22 @ 03:03 by MARCO Shepherd) Actinic keratosis Essential hypertension Hereditary hemochromatosis History of basal cell carcinoma History of squamous cell carcinoma Hyperlipidemia associated with type 2 diabetes mellitus Porphyria cutanea tarda Type 2 diabetes with complication Physical Therapy Inpatient Evaluation/Re-Eval M1 PT/OT-IP Prior Functional Status Start: 07/22/22 14:19 Freq: NEEDED Status: Active Protocol: Document 07/22/22 15:25 AW (Rec: 07/22/22 15:57 AW [id number]) Medical Review Prior Functional Status Medical History Reviewed Yes Communication WNL. Pt is an effective verbal communicator. Mobility and Gait Independent without assistive device and without meaningful limit. Pt notes peripheral and diabetic neuropathy in BLE and feels he has lost strength in the past few years. He states he needs something to hold on to when getting up from the ground which he did not used to need. Activities of Daily Living and IADL's Independent with all ADL and IADL's Social History Household Members spouse Living Arrangements House Number of Floors (Floors) One Floor Number of Stairs To Enter/Railing? Level entrance, no stairs. 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 He lives in [place] with his , Makayla. They will be working opposite shifts at time of discharge. M2 PT-IP Current Condition Start: 07/22/22 14:19 Freq: NEEDED Status: Active Protocol: Document 07/22/22 15:25 AW (Rec: 07/22/22 15:57 AW [id number]) Physical Therapy Current Condition Current Condition Evaluation Date 07/22/22 Treatment Diagnosis left foot ulcer s/p I&D Onset Date 07/10/22 M3 PT-IP Subjective Start: 07/22/22 14:19 Freq: NEEDED Status: Active Protocol: Document 07/22/22 15:25 AW (Rec: 07/22/22 15:57 AW [id number]) Subjective Physical Therapy Visit Type Type Initial Evaluation Visit Start Time 15:00 Visit Stop Time 15:25 Total Visit Minutes 25 Notes Pt's spouse was present throughout the evaluation. Physical Therapy Visit Comments Patient Comments Pt is willing to participate with PT Patient Goals Return home and to work as soon as possible. Therapy Pain Assessment Pain When Pain Assessed At Rest Pain Present Pain Present Pain Reported Location Left Foot Intensity 7 Scale Used Numeric (0 - 10) M4 PT-IP Mobility and Gait Start: 07/22/22 14:19 Freq: NEEDED Status: Active Protocol: Document 07/22/22 15:25 AW (Rec: 07/22/22 15:57 AW [id number]) PT-Bed Mobility Assessment Supine to Sit Supine to Sit Independent Sit to Supine Sit to Supine Independent PT-Transfer Assessment Sit to and From Stand Sit to and from Stand Standby Assistance,Use of Upper Extremities Equipment Transfer Assistive Device Gait Belt,Front Wheeled Walker Orthotic/Prosthetic Devices or Brace: Yes Transfers Transfer Destination Chair Transfer Technique ambulated with FWW Transfer Ability Level of Assist Standby Assistance Comments Mobility Comments Pt was lying in bed as PT arrived. BP 130/79 HR 70. PT educated pt on NWB status with alternative option of using offloading shoe to weightbear on heel only. Pt sat up EOB and PT donned forefoot offloading shoe. Pt stood SBA and noted immediately how height difference between left and right foot would affect balance. Pt used FWW to ambulate 50 feet around the room, declining ambulation in the hallway. Pt transferred to the chair and back to the bed SBA with FWW. Pt was left in bed with call light in reach. Gait Assessment Gait Gait Assistance Required: Standby Assistance Distance (Feet) 50 Able to Maintain Weight Bearing Status Yes During Gait Assistive Devices Assistive Device Gait Belt,Front Wheeled Walker Orthotic/Prosthetic Devices or Brace: Yes Gait Deviations General Gait Pattern Antalgic,Decreased Stride Length,Step-to Gait Factors Limiting Gait Function Factors Limiting Gait Function Decreased Sensation,Decreased Strength,Pain Comments Gait Comments See mobility comments for details. Stair Climbing Assessment Comments Stair Climbing Comments Not assessed. There are no stairs at home. PT-Balance Assessment Sitting Balance and Reactions Static Sitting Balance Ability Normal Dynamic Sitting Balance Ability Normal Standing Balance and Reactions Static Standing Balance Ability Good Dynamic Standing Balance Ability Good Device Used FWW and forefoot offloading shoe M5 PT-IP Objective Assessments Start: 07/22/22 14:19 Freq: NEEDED Status: Active Protocol: Document 07/22/22 15:25 AW (Rec: 07/22/22 15:57 AW [id number]) Orientation Orientation/Cognition Level of Alertness Alert Orientation Name,Day of Week,Place, Situation Language Function Ability No Deficits Noted Safety Awareness Understands Safety Issues Memory Description No Deficits Noted Gross Range of Motion Lower Extremity ROM Assessment Left Impaired Impairments lacking in active dorsiflexion due to pain Strength Upper Extremity Strength Assessment Within Functional Limits Lower Extremity Strength Hip 4+/5 Knee 4+/5 flex and ext Ankle R 4+/5 DF Comments Strength Comments L ankle not assessed due to pain. Sensation Assessment Sensation Gross Sensation Right LE Impaired,Left LE Impaired Light Touch Impaired Proprioception (Position) Impaired Sensation Description Numbness,Tingling,Burning Comments Sensation Comments Neuropathy affects BLE sensation from distal feet up to mid-thigh. M6 PT-IP Treatment Start: 07/22/22 14:19 Freq: NEEDED Status: Active Protocol: Document 07/22/22 15:25 AW (Rec: 07/22/22 15:57 AW [id number]) Physical Therapy Treatment Exercises Exercises Ankle Pumps,Quad Sets,Heel Slides Education Education Provided Weight Bearing Status,Safety Brace Education Donning,[place],Patient, Caregiver Equipment Issued Equipment Type and Company Dispensed XL forefoot- offloading shoe from [employer]. M7 PT-IP Assessment and Plan Start: 07/22/22 14:19 Freq: NEEDED Status: Active Protocol: Document 07/22/22 15:25 AW (Rec: 07/22/22 15:57 AW [id number]) PT Summary Assessment and Plan Potential Rehabilitation Potential Excellent Status of Condition at Evaluation Evolving Summary Impairments Pain,ROM,Strength,Balance, Sensation,Gait Assessment Summary Warren is a 61 yo man seen for PT evaluation on POD1 following I&D of left 5th metatarsal diabetic ulcer. He is independent in all regards at baseline though strength and sensation are affected by bilateral neuropathy affecting LE's up to mid-thigh. He is now NWB LLE with the exception of heel-only weightbearing with offloading shoe. PT dispensed offloading shoe and initiated gait training with FWW today. Pt was able to ambulate 50 feet with post op shoe and FWW SBA. Pt will need a FWW to go home and Care Management is aware. He will be home alone frequently as he and his will be working opposite shifts. Plan to continue acute PT to progress gait training with the goal of safe return home. Goals Transfer Goal Independent,Front Wheeled Walker Gait Goal Independent,Front Wheel Walker Gait Distance 200 Days to Meet Goals 2 Frequency of Treatment Frequency Of Treatment Once a Day Treatment Plan Physical Therapy Treatment Plan Gait Training,Therapeutic Exercise,Balance Retraining, Post Op Education,Discharge Planning Other Recommendations and Next Treatment pt to independently don/doff Focus post op shoe; progress gait distance Weight Bearing Status Weight Bearing Status Non-Weight Bearing Allowed Weight Bearing Amount (enter % NWB LLE vs heel-only or #) (%) weightbearing in forefoot- offloading shoe. Recommendations To Nursing Amount of Assist Needed Standby Assistance Discharge Recommendations PT Discharge Recommendations Home,Home with Assistance Equipment Needed for Home Before FWW Discharge Transportation Needs at Discharge Private Vehicle
--- NOTE | 2022-07-22 16:12 | PM.PN.1 ---
Subjective Subjective Date Patient Seen: 07/22/22 Interval history: Some left foot pain with ambulation today, otherwise no fever, chills, chest pain, shortness of breath, nausea, vomiting. Exam Vital Signs (past 8 hours): - 07/22/22 08:21 Pulse Rate 77 Blood Pressure 130/85 Oxygen Delivery Method Room Air Oxygen Flow Rate 0 Narrative Exam Narrative: General: Patient is a well-developed, well-nourished in no distress at this time. Lungs: Auscultation of all lung thomas are clear without adventitious sounds, wheezes, rhonchi, or rales. Cardio: S1 & S2 with regular rate and rhythm without murmur, rubs, or gallops, no carotid bruit, no cardiac pulsations present. Abdomen: S NT ND Musculoskeletal: Left ankle & foot are are bandaged, unable to further assess. No other joint effusions or edema. Skin: Warm dry and intact without rashes, ulcerations or petechiae. Neuro: Alert and orientated x3, sensation to touch intact, no gross deficits noted of cranial nerves. Psych: Patient has a well-kept appearance, appropriate affect, mental status attitude thought context and judgment are appropriate for age. Objective Labs Result Diagrams: 07/22/22 05:43 07/22/22 05:43 Labs: Laboratory Results - last 24 hr 07/21/22 07/21/22 07/21/22 16:20 16:20 16:20 WBC 8.3 RBC 4.97 Hgb 16.1 Hct 47.3 MCV 95.2 MCH 32.5 MCHC 34.1 RDW 13.7 Plt Count 193 Neut % (Auto) 62.5 Lymph % (Auto) 20.8 L [place] % (Auto) 12.3 Eos % (Auto) 3.6 Baso % (Auto) 0.8 Neut # (Auto) 5200 Lymph # (Auto) 1700 [place] # (Auto) 1000 H Eos # (Auto) 300 Baso # (Auto) 100 ESR PT INR Sodium 138 Potassium 4.5 Chloride 104 Carbon Dioxide 27 BUN 17 Creatinine 1.13 Estimated GFR > 60 BUN/Creatinine Ratio 15.0 Glucose 159 H Hemoglobin A1c Lactate 1.4 Calcium 9.4 Ferritin Total Bilirubin 0.5 AST 28 ALT 30 Alkaline Phosphatase 91 C-Reactive Protein Total Protein 7.4 Albumin 4.2 Globulin 3.2 Albumin/Globulin Ratio 1.3 Procalcitonin SARS-CoV-2 (PCR) 07/21/22 07/21/22 07/21/22 16:20 16:20 16:20 WBC RBC Hgb Hct MCV MCH MCHC RDW Plt Count Neut % (Auto) Lymph % (Auto) [place] % (Auto) Eos % (Auto) Baso % (Auto) Neut # (Auto) Lymph # (Auto) [place] # (Auto) Eos # (Auto) Baso # (Auto) ESR 3 PT INR Sodium Potassium Chloride Carbon Dioxide BUN Creatinine Estimated GFR BUN/Creatinine Ratio Glucose Hemoglobin A1c 7.6 H Lactate Calcium Ferritin Total Bilirubin AST ALT Alkaline Phosphatase C-Reactive Protein 2.7 H Total Protein Albumin Globulin Albumin/Globulin Ratio Procalcitonin 0.06 SARS-CoV-2 (PCR) 07/21/22 07/21/22 07/21/22 16:20 16:20 17:56 WBC RBC Hgb Hct MCV MCH MCHC RDW Plt Count Neut % (Auto) Lymph % (Auto) [place] % (Auto) Eos % (Auto) Baso % (Auto) Neut # (Auto) Lymph # (Auto) [place] # (Auto) Eos # (Auto) Baso # (Auto) ESR PT 12.2 INR 1.1 Sodium Potassium Chloride Carbon Dioxide BUN Creatinine Estimated GFR BUN/Creatinine Ratio Glucose Hemoglobin A1c Lactate Calcium Ferritin 62 Total Bilirubin AST ALT Alkaline Phosphatase C-Reactive Protein Total Protein Albumin Globulin Albumin/Globulin Ratio Procalcitonin SARS-CoV-2 (PCR) Negative 07/22/22 07/22/22 05:43 05:43 WBC 6.7 RBC 4.51 Hgb 15.0 Hct 43.0 MCV 95.2 MCH 33.2 MCHC 34.9 RDW 13.7 Plt Count 143 L Neut % (Auto) 66.0 Lymph % (Auto) 19.1 L [place] % (Auto) 10.1 Eos % (Auto) 3.9 Baso % (Auto) 0.9 Neut # (Auto) 4400 Lymph # (Auto) 1300 [place] # (Auto) 700 Eos # (Auto) 300 Baso # (Auto) 100 ESR PT INR Sodium 138 Potassium 4.3 Chloride 107 Carbon Dioxide 26 BUN 11 Creatinine 0.86 Estimated GFR > 60 BUN/Creatinine Ratio 12.8 Glucose 127 H Hemoglobin A1c Lactate Calcium 8.2 L Ferritin Total Bilirubin AST ALT Alkaline Phosphatase C-Reactive Protein Total Protein Albumin Globulin Albumin/Globulin Ratio Procalcitonin SARS-CoV-2 (PCR) [facility] Medical History (Updated 07/22/22 @ 03:03 by MARCO Shepherd) Actinic keratosis Essential hypertension Hereditary hemochromatosis History of basal cell carcinoma History of squamous cell carcinoma Hyperlipidemia associated with type 2 diabetes mellitus Porphyria cutanea tarda Type 2 diabetes with complication Surgical History Status post left foot surgery Family History Mother Cancer Squamous cell carcinoma Father Multiple myeloma Social History marital status: household members: spouse lives independently: Yes occupational status: employed Smoking Status: Former smoker alcohol intake: former Assessment & Plan Assessment & Plan narrative: Warren Menchacais a 61-year-old male with history of hereditary hemochromatosis, porphyria cutanea tarda, NIDDM, peripheral neuropathy, hypertension, hyperlipidemia, actinic keratoses, hx of basal cell carcinoma, squamous cell carcinoma,gout, who was 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 Patient admitted for surgical consult for left foot 5th metatarsal osteomyelitis lower extremity ulceration and small abscess. 1. NIDDM left foot chronic ulceration with small abscess, with peripheral neuropathy, acute on chronic, present on admission. Osteomyelitis ruled out. - continue broad antibiotics pending operative cultures - s/pI&D with orthopedic surgery, did not believe that infection proceeded into bone (given possibilty on CT imaging on admission). - transition to oral antiboitics once cultures result if possible. 2. Essential hypertension, acute on chronic, present on admission -continue atenolol, lisinopril, ASA 3. Hyperlipidemia secondary to type 2 diabetes, chronic, present on admission -continue Lipitor Code status:Full Surrogate decision maker: Makayla Schulz COVID PCR:Negative Disposition: Discharge home, hopefully on oral antibiotics once cultures finalize. ? Time Spent With Patient Critical Care time: I spent a total of [] minutes of critical care time on this patient's care today; this time is exclusive of procedural time. Quality VTE Deep Vein Thrombosis/Pulmonary Embolism Present on Admission: No
--- NOTE | 2022-07-22 16:14 | OT.IPNOTE ---
Attempted to see pt for OT eval , pt states has no issues for OT needs and has been able to care for himself. Therefore discharge pt for OT services.
[2022-07-22] MEDS: VANCOMYCIN 1,500 MG/300 ML PIGGYBACK 200 MG IV (20:09)
[2022-07-22 22:00] VITALS: BP 134/68; PULSE 79; RESP 18; TEMP 36.3; O2SAT 97
[2022-07-23] MEDS: CEFEPIME 2 GM in SODIUM CHLORIDE 0.9% 100 ML IV (01:16)
[2022-07-23] MEDS: OXYCODONE IR 5 MG TABLET PO (01:23)
[2022-07-23] MEDS: metroNIDAZOLE 500 MG/100 ML PIGGYBACK 100 MG IV (01:52)
[2022-07-23 05:18] VITALS: BP 145/79; PULSE 76; RESP 18; TEMP 36.2; O2SAT 96
[2022-07-23 06:23] LABS: Add Manual Diff / Slide Review NO; Basophils Absolute Auto 100 /uL (0-100); Basophils Percent Auto 0.7 % (0-2); Eosinophils Absolute Auto 200 /uL (0-450); Eosinophils Percent Auto 2.6 % (2-4); Hematocrit 46.5 % (41-53); Hemoglobin 15.8 g/dL (13.5-17.5); Lymphocytes Absolute Auto 1000 /uL (1100-4500); Lymphocytes Percent Auto 13.7 % (25-40); Mean Corpuscular HGB Conc 34.1 % (30-36); Mean Corpuscular Hemoglobin 32.6 PG (26-34); Mean Corpuscular Volume 95.5 fL (80-100); Monocytes Absolute Auto 800 /uL (0-900); Monocytes Percent Auto 10.1 % (3-14); Neutrophils Absolute Auto 5500 /uL (1500-7000); Neutrophils Percent Auto 72.9 % (50-75); Platelet Count 154 X10^3/uL (150-400); Red Blood Cell Count 4.86 X10^6/uL (4.5-5.9); Red Cell Distribution Width 13.4 % (11.6-14.8); White Blood Cell Count 7.5 X10^3/uL (4.5-11.0)
[2022-07-23 06:31] LABS: BUN Creatinine Ratio 13.1 (6-22); Blood Urea Nitrogen 11 mg/dL (9-20); Calcium 8.4 mg/dL (8.4-10.2); Carbon Dioxide 22 mmol/L (22-32); Chloride 107 mmol/L (98-107); Estimated Glomerular Filt Rate > 60 mL/min (>60); Glucose 126 mg/dL (80-110); HEMOLYSIS 19 (0-50); Potassium 4.4 mmol/L (3.4-5.1); Sodium 136 mmol/L (137-145)
[2022-07-23 08:14] VITALS: BP 145/79; PULSE 76
[2022-07-23] MEDS: lisinopriL 20 MG TABLET PO (08:14)
[2022-07-23] MEDS: ATORVASTATIN 20 MG TABLET PO (08:14)
[2022-07-23] MEDS: HEPARIN 5,000 UNIT/ML VIAL 5000 UNIT SUBCUT (08:14)
[2022-07-23] MEDS: VANCOMYCIN 1,500 MG/300 ML PIGGYBACK 200 MG IV (08:14)
[2022-07-23] MEDS: DOCUSATE 100 MG CAPSULE PO (08:14)
[2022-07-23] MEDS: DULOXETINE 20 MG CAPSULE 40 MG PO (08:20)
[2022-07-23] MEDS: atenoloL 50 MG TABLET PO (08:20)
[2022-07-23] MEDS: HYDROCODONE/ACET 5/325 TABLET 1 TAB PO (08:37)
--- NOTE | 2022-07-23 09:24 | PM.PNPO.1 ---
Subjective Subjective Date Patient Seen: 07/23/22 Time Patient Seen: 09:25 Interval history: Sitting up in bed comfortably. Has been working w/ PT, using offloading shoe, this is going well. He does 'hobble' to bathroom on heel without shoe with no difficulty. Exam Vital Signs (past 8 hours): - 07/23/22 05:18 07/23/22 08:14 Temperature 97.1 F L Pulse Rate 76 76 Respiratory Rate 18 Blood Pressure 145/79 H 145/79 H Pulse Oximetry 96 Oxygen Flow Rate 0 Oxygen Delivery Method Room Air Oxygen Flow Rate 0 Narrative Exam Narrative: Wound cultures pending. Wiggles toes, DF, PF. Calf soft, compressible, nontender. No feeling in toes d/t neuropathy, brisk capillary refill. Objective Labs Result Diagrams: 07/23/22 06:05 07/23/22 06:05 Labs: Laboratory Results - last 24 hr 07/23/22 07/23/22 06:05 06:05 WBC 7.5 RBC 4.86 Hgb 15.8 Hct 46.5 MCV 95.5 MCH 32.6 MCHC 34.1 RDW 13.4 Plt Count 154 Neut % (Auto) 72.9 Lymph % (Auto) 13.7 L [place] % (Auto) 10.1 Eos % (Auto) 2.6 Baso % (Auto) 0.7 Neut # (Auto) 5500 Lymph # (Auto) 1000 L [place] # (Auto) 800 Eos # (Auto) 200 Baso # (Auto) 100 Sodium 136 L Potassium 4.4 Chloride 107 Carbon Dioxide 22 BUN 11 Creatinine 0.84 Estimated GFR > 60 BUN/Creatinine Ratio 13.1 Glucose 126 H Calcium 8.4 PFSH Medical History (Updated 07/22/22 @ 03:03 by LUBNA Shepherd-EDWIGE) Actinic keratosis Essential hypertension Hereditary hemochromatosis History of basal cell carcinoma History of squamous cell carcinoma Hyperlipidemia associated with type 2 diabetes mellitus Porphyria cutanea tarda Type 2 diabetes with complication Surgical History Status post left foot surgery Family History Mother Cancer Squamous cell carcinoma Father Multiple myeloma Social History marital status: household members: spouse lives independently: Yes occupational status: employed Smoking Status: Former smoker alcohol intake: former Assessment & Plan Post-op Assessment and plan (1) Status post left foot surgery: Assessment and Plan narrative: Once cultures finalize should be able to be discharged on oral antibiotic if appropriate based on the sensitivities for this soft tissue infection.? Will need to be nonweightbearing to LLE or alternatively can be heel weight-bearing in forefoot offloading shoe with crutches.? No forefoot weight-bearing.? Sutures will remain in place approximately 4 weeks, until about Aug 18.? Follow up in Orthopedic Clinic between Jul 31 and for a wound check. Postoperative Procedures: Procedures Operation Date: 07/21/22 19:30 Actual Procedure Side Surgeon p Incision and Drainage Wound/Extremity left foot Left Veronica Schulz MD Postoperative day: 2 Quality VTE Deep Vein Thrombosis/Pulmonary Embolism Present on Admission: No
--- NOTE | 2022-07-23 10:22 | P.DS_ITS ---
History of Present Illness History of Present Illness Date Patient Seen: 07/23/22 Chief complaint: lt foot infection, sent by Dr Campos Narrative: Derrell Henry, [facility]-BC: Warren Zeus ?is a 61-year-old male with history of hereditary hemochromatosis, porphyria cutanea tarda, NIDDM, peripheral neuropathy, hypertension, hyperlipidemia, actinic keratoses, hx of basal cell carcinoma, squamous cell carcinoma, gout, who presents to the emergency department today after his Podiatry Dr. Campos sent him to the ED for his diabetic left foot wound that has worsened. Admission exam completed after returning from the OR. Patient denies chest pain, shortness of breath, fever, body aches, chills, abdominal pain, nausea, vomiting, upper respiratory symptoms, hematuria, difficulty with urination, melena, constipation, any other recent illness injury or trauma. Patient has history of elevated ferritin and has had therapeutic phlebotomies in the past and predicted to need this every 2-3 months. Is followed by Oncology. Patient's postoperative pain is well controlled, and has no further concerns at this time. At the time of admit patient's temp 98.1?, BP 128/76, HR 82, R 16, O2 saturation 96% on room air. Patient is resting comfortably in bed in no distress at this time. Patient's CBC is within normal limits, as is CMP and liver panel with the exception of glucose 159, A1c 7.6, CRP 2.7 procalcitonin, lactic acid, COVID, an ESR are all negative. Left lower extremity CT demonstrated ulceration and suggestion of small abscess collection over plantar aspect of lateral forefoot near 5th metatarsal shaft and head, concerning for early osteomyelitis involving plantar aspect of [address] Schulz was consulted in the ED. patient admitted for surgical intervention for diabetic left foot wound ulceration of the 5th metatarsal osteomyelitis and abscess. Discharge Providers Provider Date of admission: 07/21/22 17:43 Discharge Date: 07/23/22 Primary care physician: Emigdio Herring MD Consults: 07/21/22 17:11 Consult to Orthopedic Surgery Stat Comment: Consulting Provider: Veronica Schulz Reason for consultation: osteomyelitis 07/21/22 20:43 Consult to Discharge Planning Routine Comment: Consult to Occupational Therapy Evaluate & Treat Comment: Physician Instructions: Evaluate and treat Consult to Physical Therapy Evaluate & Treat Comment: Physician Instructions: Evaluate and Treat Consult to Physical Therapy Evaluate & Treat Comment: nwb lle or heel wb for balance with crutches ok Physician Instructions: Evaluate and Treat Consult to Respiratory Therapy Evaluate & Treat Comment: Physician Instructions: Evaluate and treat 07/22/22 15:32 Consult to Physical Therapy Evaluate & Treat Comment: FWW for home use. Physician Instructions: Evaluate and Treat Discharge provider: Drake Anderson DO Summary Hospital Course Discharge Diagnosis: 1.? NIDDM left foot chronic ulceration with small abscess, with peripheral neuropathy, acute on chronic, present on admission. Osteomyelitis ruled out. 2. Essential hypertension, acute on chronic, present on admission 3. Hyperlipidemia secondary to type 2 diabetes, chronic, present on admission Hospital Course: Warren Schulz ?is a 61-year-old male with history of hereditary hemochromatosis, porphyria cutanea tarda, NIDDM, peripheral neuropathy, hypertension, hyperlipidemia,? 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 Patient admitted for surgical consult for left foot 5th metatarsal possible osteomyelitis, lower extremity ulceration, and small abscess. He underwent I&D with orthopedic surgery, and infection did not probe to bone and osteomyelitis was felt to be unlikely. His pain continued to improve with antibiotic therapy and once cultures returned with coag negative staph he was discharged home with augmentin therapy. He will follow up with orthopedic surgery in 2 weeks as an outpatient. He has weight bearing restrictions on his LLE per orthopedics. No other medication changes are recommended at this time. Time Spent with Patient Time spent: Greater than 30 minutes Exam Vital Signs (past 8 hours): - 07/23/22 05:18 07/23/22 08:14 Temperature 97.1 F L Pulse Rate 76 76 Respiratory Rate 18 Blood Pressure 145/79 H 145/79 H Pulse Oximetry 96 Oxygen Flow Rate 0 Oxygen Delivery Method Room Air Oxygen Flow Rate 0 Narrative Exam Narrative: General: Patient is a well-developed, well-nourished in no distress at this time. Lungs: Auscultation of all lung thomas are clear without adventitious sounds, wheezes, rhonchi, or rales. Cardio: S1 & S2 with regular rate and rhythm without murmur, rubs, or gallops, no carotid bruit, no cardiac pulsations present. Abdomen: S NT ND Musculoskeletal: Left ankle & foot are are bandaged, unable to further assess. No other joint effusions or edema. Skin: Warm dry and intact without rashes, ulcerations or petechiae. Neuro: Alert and orientated x3, sensation to touch intact, no gross deficits noted of cranial nerves. Psych: Patient has a well-kept appearance, appropriate affect, mental status attitude thought context and judgment are appropriate for age. Objective Labs Result Diagrams: 07/23/22 06:05 07/23/22 06:05 Labs: Laboratory Results - last 24 hr 07/23/22 07/23/22 06:05 06:05 WBC 7.5 RBC 4.86 Hgb 15.8 Hct 46.5 MCV 95.5 MCH 32.6 MCHC 34.1 RDW 13.4 Plt Count 154 Neut % (Auto) 72.9 Lymph % (Auto) 13.7 L [place] % (Auto) 10.1 Eos % (Auto) 2.6 Baso % (Auto) 0.7 Neut # (Auto) 5500 Lymph # (Auto) 1000 L [place] # (Auto) 800 Eos # (Auto) 200 Baso # (Auto) 100 Sodium 136 L Potassium 4.4 Chloride 107 Carbon Dioxide 22 BUN 11 Creatinine 0.84 Estimated GFR > 60 BUN/Creatinine Ratio 13.1 Glucose 126 H Calcium 8.4 PFSH Medical History (Updated 07/22/22 @ 03:03 by LUBNA Shepherd-EDWIGE) Actinic keratosis Essential hypertension Hereditary hemochromatosis History of basal cell carcinoma History of squamous cell carcinoma Hyperlipidemia associated with type 2 diabetes mellitus Porphyria cutanea tarda Type 2 diabetes with complication Surgical History Status post left foot surgery Family History Mother Cancer Squamous cell carcinoma Father Multiple myeloma Social History marital status: household members: spouse lives independently: Yes occupational status: employed Smoking Status: Former smoker alcohol intake: former Discharge Plan Discharge Plan Patient Disposition: Home Provider Discharge Comment: You were admitted to the hospital with an infection in your left foot. This was drained with orthopedic surgery. No evidence of bone involvement. Continue antibiotics for another 10 days, these can be narrowed depending on results of your culture which is still pending. Per orthopedic surgery: Will need to be nonweightbearing to LLE or alternatively can be heel weight-bearing in forefoot offloading shoe with crutches. No forefoot weight- bearing. Sutures will remain in place approximately 4 weeks, until about Aug 18. Follow up in Orthopedic Clinic between Jul 31 and for a wound check. Discharge orders & Medications Prescriptions: New hydrocodone-acetaminophen 5-325 mg tablet 1 tab PO Q6H PRN (Reason: pain) 7 Days Qty: 20 0RF amoxicillin-pot clavulanate 875-125 mg tablet 1 tab PO BID 10 Days Qty: 20 0RF Continued lisinopril 20 mg Tablet 20 mg PO DAILY aspirin 81 mg Tablet,Delayed Release (Dr/Ec) 81 mg PO DAILY metformin 500 mg Tablet Extended Release 24 Hr 1,000 mg PO DAILY atenolol 50 mg Tablet 50 mg PO DAILY atorvastatin [Lipitor] 20 mg Tablet 20 mg PO DAILY Label Comments: pregabalin 75 mg capsule 150 mg PO DAILY Label Comments: TAKE TWO CAPSULES BY MOUTH TWICE DAILY Jardiance 10 mg Tablet 20 mg PO DAILY Follow up/Referrals: Veronica Schulz MD [Physician] - 1 Week Emigdio Herring MD [Primary Care Provider] - Diet/Activity/Treatments Diet: Diet as Tolerated and Carb-consistent/Diabetic Activity: As noted above Visit Report/Discharge Packet Instructions: DI for Heart Failure, DI for Prescription Opioid Use, DI for Incision and Drainage of a Joint, DI for Incision and Drainage, [facility]: Wound Care Stand Alone Forms: Surgery Discharge Discharge Data Primary Care Provider: Emigdio Herring Quality VTE Deep Vein Thrombosis/Pulmonary Embolism Present on Admission: No
[2022-07-23 10:28] VITALS: BP 130/83; PULSE 81
--- NOTE | 2022-07-23 11:00 | PT.IPTN ---
Current Diagnoses Type 2 diabetes mellitus with foot ulcer (07/21/22) Type 2 diabetes mellitus with other skin complications (07/21/22) Local infection of the skin and subcutaneous tissue, unspecified (07/21/22) Non-pressure chronic ulcer of other part of unspecified foot with unspecified severity (07/21/22) Other specified postprocedural states (07/21/22) Surgery Performed Operation Date: 07/21/22 19:30 Actual Procedures p Incision and Drainage Wound/Extremity left foot (Left) - Veronica Schulz MD Physical Therapy Treatment Note M2 PT-IP Current Condition Start: 07/22/22 14:19 Freq: NEEDED Status: Active Protocol: Document 07/22/22 15:25 AW (Rec: 07/22/22 15:57 AW [id number]) Physical Therapy Current Condition Current Condition Evaluation Date 07/22/22 Treatment Diagnosis left foot ulcer s/p I&D Onset Date 07/10/22 M3 PT-IP Subjective Start: 07/22/22 14:19 Freq: NEEDED Status: Active Protocol: Document 07/23/22 10:48 KS (Rec: 07/23/22 12:35 KS [id number]) Subjective Physical Therapy Visit Type Type Treatment Note Visit Start Time 10:48 Visit Stop Time 11:00 Total Visit Minutes 12 Number of ASSET MANAGEMENT LEAD Visits 1 Physical Therapy Visit Comments Patient Comments Pt is willing to participate with PT Patient Goals Return home and to work as soon as possible. M4 PT-IP Mobility and Gait Start: 07/22/22 14:19 Freq: NEEDED Status: Active Protocol: Document 07/23/22 10:48 KS (Rec: 07/23/22 12:35 KS [id number]) PT-Bed Mobility Assessment Supine to Sit Supine to Sit Independent Sit to Supine Sit to Supine Independent Scooting Scooting to Edge of Bed Independent PT-Transfer Assessment Sit to and From Stand Sit to and from Stand Standby Assistance,Use of Upper Extremities Equipment Transfer Assistive Device Gait Belt,Front Wheeled Walker Orthotic/Prosthetic Devices or Brace: Yes Transfers Transfer Destination Bed Transfer Technique ambulated with FWW Transfer Ability Level of Assist Standby Assistance Comments Mobility Comments Pt in bed upon arrival and eager to return home. Able to roque/doff off loading shoe correctly and w/ ease. Dispensed FWW for pt home use and pt ambulated ~40 ft in room SBA before returning to bed. Gait Assessment Gait Gait Assistance Required: Standby Assistance Distance (Feet) 40 Able to Maintain Weight Bearing Status Yes During Gait Assistive Devices Assistive Device Gait Belt,Front Wheeled Walker Orthotic/Prosthetic Devices or Brace: Yes Gait Deviations General Gait Pattern Antalgic,Decreased Stride Length,Step-to Gait Factors Limiting Gait Function Factors Limiting Gait Function Decreased Sensation,Decreased Strength,Pain Comments Gait Comments Cues for FWW mgmt/keeping FWW close to body. Stair Climbing Assessment Comments Stair Climbing Comments Not assessed. There are no stairs at home. PT-Balance Assessment Sitting Balance and Reactions Static Sitting Balance Ability Normal Dynamic Sitting Balance Ability Normal Standing Balance and Reactions Static Standing Balance Ability Good Dynamic Standing Balance Ability Good Device Used FWW and forefoot offloading shoe M5 PT-IP Objective Assessments Start: 07/22/22 14:19 Freq: NEEDED Status: Active Protocol: Document 07/22/22 15:25 AW (Rec: 07/22/22 15:57 AW [id number]) Orientation Orientation/Cognition Level of Alertness Alert Orientation Name,Day of Week,Place, Situation Language Function Ability No Deficits Noted Safety Awareness Understands Safety Issues Memory Description No Deficits Noted Gross Range of Motion Lower Extremity ROM Assessment Left Impaired Impairments lacking in active dorsiflexion due to pain Strength Upper Extremity Strength Assessment Within Functional Limits Lower Extremity Strength Hip 4+/5 Knee 4+/5 flex and ext Ankle R 4+/5 DF Comments Strength Comments L ankle not assessed due to pain. Sensation Assessment Sensation Gross Sensation Right LE Impaired,Left LE Impaired Light Touch Impaired Proprioception (Position) Impaired Sensation Description Numbness,Tingling,Burning Comments Sensation Comments Neuropathy affects BLE sensation from distal feet up to mid-thigh. M6 PT-IP Treatment Start: 07/22/22 14:19 Freq: NEEDED Status: Active Protocol: Document 07/23/22 10:48 KS (Rec: 07/23/22 12:35 KS [id number]) Physical Therapy Treatment Education Education Provided Weight Bearing Status,Safety Brace Education Donning,Panaca,Patient, Caregiver Other Treatments Other Treatment Performed Dispensed FWW for home use. M7 PT-IP Assessment and Plan Start: 07/22/22 14:19 Freq: NEEDED Status: Active Protocol: Document 07/23/22 10:48 KS (Rec: 07/23/22 12:35 KS [id number]) PT Summary Assessment and Plan Potential Rehabilitation Potential Excellent Summary Impairments Pain,ROM,Strength,Balance, Sensation,Gait Progress Towards Goals Progressing Toward Goals Assessment Summary Pt able to move around independently w/ FWW and roque/ doff off loading shoe. Understands WB status and agreeable to using FWW which was dispensed for home use. Pt feels eager to return home and feels he has no further needs from PT. Goals Transfer Goal Independent,Front Wheeled Walker Gait Goal Independent,Front Wheel Walker Gait Distance 200 Days to Meet Goals 2 Frequency of Treatment Frequency Of Treatment Once a Day Treatment Plan Physical Therapy Treatment Plan Gait Training,Therapeutic Exercise,Balance Retraining, Post Op Education,Discharge Planning Weight Bearing Status Weight Bearing Status Non-Weight Bearing Allowed Weight Bearing Amount (enter % NWB LLE vs heel-only or #) (%) weightbearing in forefoot- offloading shoe. Recommendations To Nursing Amount of Assist Needed Standby Assistance Discharge Recommendations PT Discharge Recommendations Home,Home with Assistance Transportation Needs at Discharge Private Vehicle
== END 2022-07-23 12:30 | disposition home or self-care (01) | DRG 623 ==
LOC: ED 17:26 → AC 17:44
PROVIDERS: Nurse Practitioner Family; Orthopaedic Surgery Foot and Ankle Surgery; Admitting Provider Student in an Organized Health Care Education/Training Program; Emergency Provider Nurse Practitioner Critical Care Medicine; PCP Family Medicine; Referring Provider Podiatrist; Visit Provider Student in an Organized Health Care Education/Training Program
PROC: 0JBR0ZZ Excision of Left Foot Subcutaneous Tissue and Fascia, Open Approach (ICD-10-PCS; principal; 2022-07-21 19:30)
DX: E11.621 Type 2 diabetes mellitus with foot ulcer (principal); L97.429 Non-pressure chronic ulcer of left heel and midfoot with unspecified severity; L03.116 Cellulitis of left lower limb; E11.628 Type 2 diabetes mellitus with other skin complications; E11.42 Type 2 diabetes mellitus with diabetic polyneuropathy; I10 Essential (primary) hypertension; E78.5 Hyperlipidemia, unspecified; Z79.84 Long term (current) use of oral hypoglycemic drugs; Z20.822 Contact with and (suspected) exposure to COVID-19; Z87.891 Personal history of nicotine dependence
CPT/HCPCS: 36415; 73630; 73701; 80048; 80053; 82728; 82962; 83036; 83605; 84145; 85025; 85610; 85651; 86140; 87040; 87070; 87075; 87077; 87147; 87186; 87205; 87635; 97116; 97162; 99283; 99284; C9803; J0692; J1644; J1815; J2405; J2704; J2765; J3010

== ENCOUNTER → 2022-09-09 08:25 | Outpatient (CLI) | payer OTHER, SELFPAY | PROVIDERS: PCP Family Medicine; Referring Provider Orthopaedic Surgery Foot and Ankle Surgery; Visit Provider Family Medicine | DX: E11.621 Type 2 diabetes mellitus with foot ulcer (principal); L97.522 Non-pressure chronic ulcer of other part of left foot with fat layer exposed; E11.40 Type 2 diabetes mellitus with diabetic neuropathy, unspecified; Z79.4 Long term (current) use of insulin | CPT/HCPCS: 11042; 87070; 87075; 87205; 99204; 99213 ==

== ENCOUNTER → 2022-09-16 10:26 | Outpatient (CLI) | payer OTHER, SELFPAY ==
--- NOTE | 2022-09-16 | DI.MRI.S_ITS ---
PROCEDURE: MR FOOT LT WO/W CON INDICATIONS: Type 2 diabetes mellitus with foot ulcer TECHNIQUE: Noncontrast coronal T1 spin echo and STIR, sagittal T1 spin echo with fat saturation and STIR, axial T1 spin echo and T2 fast spin echo with fat saturation. After the administration of contrast, axial/sagittal/coronal T1 spin echo with fat saturation through the left foot. COMPARISON: [facility], CT, CT LE LT W CON, 07/21/2022, 16:27. [facility], CR, XR FOOT LT MIN 3V, 07/21/2022, 17:46. FINDINGS: Image quality: Excellent. Bones: As seen on previous CT scan, there is marrow edema involving 5th metatarsal head without definite bony erosion concerning for osteomyelitis in this area. No other area of abnormal marrow signal is seen. [id number] midfoot and forefoot joint osteoarthritic changes are seen with joint space narrowing and subchondral sclerosis. No suspicious intraosseous lesion. After IV contrast infusion, there is heterogeneous contrast enhancement involving 5th metatarsal head at the area of edema. No other area of abnormal intraosseous enhancement is noted. Soft tissues: There is mild soft tissue edema and swelling over dorsum of midfoot predominantly over medial aspect, and show heterogeneous contrast enhancement suggestive of cellulitis. Small ulceration involving lateral and plantar aspect of 5th toe at the level of 5th metatarsal head is seen without significant surrounding soft tissue edema and contrast enhancement. No drainable abscess collection is noted. There is also mild edema and enhancement involving plantar foot muscles without discrete intramuscular fluid collection. IMPRESSION: 1. Small ulceration involving plantar and lateral aspect of forefoot at the level of 5th metatarsal head without significant adjacent cellulitis. Mild cellulitis over dorsal aspect of medial midfoot and forefoot. No discrete drainable abscess collection is seen. 2. Suggestion of osteomyelitis involving 5th metatarsal head. No other area of marrow signal abnormality is seen to suggest additional area of osteomyelitis. 3. Midfoot and forefoot joint osteoarthritis. No fracture or dislocation. 4. Suggestion of mild myositis involving plantar foot muscles without abnormal intramuscular fluid collection or enhancing mass . Dictated by: Joshua Young M.D. on 09/16/2022 at 12:37 Approved by: oJshua Young M.D. on 09/16/2022 at 12:44
== END ==
PROVIDERS: PCP Family Medicine; Referring Provider Orthopaedic Surgery Foot and Ankle Surgery; Visit Provider Orthopaedic Surgery Foot and Ankle Surgery
DX: E11.621 Type 2 diabetes mellitus with foot ulcer (principal); M19.072 Primary osteoarthritis, left ankle and foot
CPT/HCPCS: 73720; A9579

== ENCOUNTER → 2022-09-20 08:37 | Outpatient (CLI) | payer OTHER, SELFPAY | PROVIDERS: PCP Family Medicine; Referring Provider Family Medicine; Visit Provider Family Medicine | DX: E11.621 Type 2 diabetes mellitus with foot ulcer (principal); L97.522 Non-pressure chronic ulcer of other part of left foot with fat layer exposed; E11.42 Type 2 diabetes mellitus with diabetic polyneuropathy; M89.9 Disorder of bone, unspecified; R60.0 Localized edema | CPT/HCPCS: 11042; 99213 ==

== ENCOUNTER → 2022-09-27 10:34 | Outpatient (CLI) | payer OTHER, SELFPAY | PROVIDERS: PCP Family Medicine; Referring Provider Orthopaedic Surgery Foot and Ankle Surgery; Visit Provider Family Medicine | DX: E11.621 Type 2 diabetes mellitus with foot ulcer (principal); L97.522 Non-pressure chronic ulcer of other part of left foot with fat layer exposed; E11.40 Type 2 diabetes mellitus with diabetic neuropathy, unspecified | CPT/HCPCS: 11042 ==

== ENCOUNTER → 2022-10-05 10:07 | Outpatient (CLI) | payer OTHER, SELFPAY | PROVIDERS: PCP Family Medicine; Referring Provider Orthopaedic Surgery Foot and Ankle Surgery; Visit Provider Family Medicine | DX: E11.621 Type 2 diabetes mellitus with foot ulcer (principal); L97.522 Non-pressure chronic ulcer of other part of left foot with fat layer exposed; L08.9 Local infection of the skin and subcutaneous tissue, unspecified; R60.0 Localized edema; E11.40 Type 2 diabetes mellitus with diabetic neuropathy, unspecified | CPT/HCPCS: 87070; 87075; 87077; 87147; 87205; 99213 ==

== ENCOUNTER → 2022-10-12 10:01 | Outpatient (CLI) | payer OTHER, SELFPAY | PROVIDERS: PCP Family Medicine; Referring Provider Family Medicine; Visit Provider Family Medicine | DX: E11.621 Type 2 diabetes mellitus with foot ulcer (principal); L97.522 Non-pressure chronic ulcer of other part of left foot with fat layer exposed; E11.42 Type 2 diabetes mellitus with diabetic polyneuropathy; B95.7 Other staphylococcus as the cause of diseases classified elsewhere | CPT/HCPCS: 11042; 87070; 87075; 87147; 87205; 99213; 99214 ==

== ENCOUNTER → 2022-10-19 08:33 | Outpatient (CLI) | payer OTHER, SELFPAY | PROVIDERS: PCP Family Medicine; Referring Provider Orthopaedic Surgery Foot and Ankle Surgery; Visit Provider Family Medicine | DX: E11.621 Type 2 diabetes mellitus with foot ulcer (principal); L97.522 Non-pressure chronic ulcer of other part of left foot with fat layer exposed; E11.42 Type 2 diabetes mellitus with diabetic polyneuropathy; R60.0 Localized edema | CPT/HCPCS: 11042; 87070; 87075; 87077; 87147; 87205; 99214 ==

== ENCOUNTER → 2022-10-27 14:57 | Outpatient (CLI) | payer OTHER, SELFPAY | PROVIDERS: PCP Family Medicine; Referring Provider Family Medicine; Visit Provider Surgery | DX: E11.621 Type 2 diabetes mellitus with foot ulcer (principal); L97.522 Non-pressure chronic ulcer of other part of left foot with fat layer exposed; E11.42 Type 2 diabetes mellitus with diabetic polyneuropathy | CPT/HCPCS: 11042 ==

== ENCOUNTER → 2022-11-03 15:53 | Outpatient (CLI) | payer OTHER, SELFPAY | PROVIDERS: PCP Family Medicine; Referring Provider Family Medicine; Visit Provider Surgery | DX: E11.621 Type 2 diabetes mellitus with foot ulcer (principal); L97.522 Non-pressure chronic ulcer of other part of left foot with fat layer exposed; E11.40 Type 2 diabetes mellitus with diabetic neuropathy, unspecified | CPT/HCPCS: 97597 ==

== ENCOUNTER → 2022-11-09 13:25 | Outpatient (CLI) | payer OTHER, SELFPAY ==
[2022-11-09 14:13] LABS: COVID19 -Nasal RAPID Negative (Negative)
== END ==
PROVIDERS: PCP Family Medicine; Referring Provider Orthopaedic Surgery Foot and Ankle Surgery; Visit Provider Orthopaedic Surgery Foot and Ankle Surgery
DX: Z20.822 Contact with and (suspected) exposure to COVID-19 (principal)
CPT/HCPCS: 87635; C9803

== ENCOUNTER 2022-11-11 12:56 | Day surgery (SDC) | payer OTHER, SELFPAY ==
[2022-11-09 14:45] VITALS: BMI 28.5
[2022-11-11 13:43] VITALS: BP 116/79; PULSE 82; RESP 14; TEMP 36.6; O2SAT 99; BMI 29.2
[2022-11-11] MEDS: LACTATED RINGERS 1,000 ML 42 ML IV (13:54)
--- NOTE | 2022-11-11 14:19 | PM.PREOP ---
Pre-operative Note COVID-19 COVID-19 status: Negative Interval Note History & Physical reviewed/Exam performed by Physician: Yes Changes to H&P: No
[2022-11-11] MEDS: CEFAZOLIN 2 GM/100 ML PREMIX 100 ML IV (15:28)
[2022-11-11] MEDS: BUPIVACAINE 0.5% W/ EPI (PF) 30 ML VIAL INJ (15:44)
--- NOTE | 2022-11-11 15:51 | SUR.OPER ---
Supine on padded OR bed, head on pillow, arms secured on padded arm boards at <90 degrees abduction, legs uncrossed, safety belt at waist.
[2022-11-11 16:08] VITALS: BP 99/65; PULSE 91; RESP 16; TEMP 36.6; O2SAT 93
[2022-11-11 16:13] VITALS: BP 95/61; PULSE 92; RESP 16; O2SAT 94
[2022-11-11 16:18] VITALS: BP 97/58; PULSE 89; RESP 18; O2SAT 95
[2022-11-11 16:35] VITALS: BP 111/81; PULSE 92; RESP 18; TEMP 36.6; O2SAT 96
--- NOTE | 2022-11-11 16:40 | P.OP_ITS ---
Operative Date/Time/Diagnoses Date of procedure: 11/11/22 Time of procedure: 16:40 Pre-op diagnosis: Left foot diabetic ulcer, tailor's bunionette, osteomyelitis, diabetic foot ulcer with bone involvement Post-op diagnosis: same Procedure & Clinicians Procedure: Excision 5th metatarsal head CPT code 40864 left Excisional debridement skin soft tissue and bone left CPT code 55327 Same procedure as scheduled: Yes Indications: Patient is a 61-year-old diabetic male that had a acute abscess of his 5th toe just lateral to the 5th MTP head. He had debridement of this has had slow healing. It is found to have osteomyelitis. He was treated with IV and oral antibiotics. He is had a stagnation of his ulceration and continued pain. He has been indicated for a more extensive procedure this is a excision of the 5th metatarsal head with debridement of skin and bone excision of the ulcer. And closure. He does state prior to the infection he had persistent pain along the prominent 5th metatarsal head consistent with a symptomatic tailor's bunionette as well. The risks and benefits of the procedure have been discussed with the patient and given the opportunity to ask questions. The risks of surgery include but are not limited to infection, malunion, nonunion, persistence of pain, damage to nerves and blood vessels, posttraumatic arthritis, DVT, PE, coardiopulmonary complications and . The patient expressed a thorough understanding of the risks and benefits of surgery and has elected to proceed. Consent was signed. Surgeon: Veronica Schulz Click Yes if Unassisted: Yes Anesthesia Type: General and Local Operative Notes Findings: Soft 5th metatarsal head consistent with osteomyelitis. 0.5 by Xeroform 5 ulceration full-thickness lateral to the 5th metatarsal head with surrounding thickened callused tissue. This was excised. Purulence. Metatarsal head was sent for culture and sensitivity Closure Type: primary Specimen(s): other (Metatarsal head bone for culture and sensitivity) Estimated Blood Loss (mL): 5 Blood products transfused: none Tourniquet time (min): 14 Procedure in detail: Patient was seen in the preoperative area the site of surgery was marked informed consent confirmed. The patient was then brought back to the operating room by the anesthesia team positioned supine on operative table. General anesthetic was administered. The left lower extremities prepped and draped in the standard sterile fashion a nonsterile tourniquet was placed and well padded. An ipsilateral thigh bump was placed. The left foot was prepped and draped in the standard sterile fashion a formal time-out procedure was performed confirming the patient side and site of surgery and administration of appropriate antibiotic. All were in agreement. Attention turned to the left lower extremity. Tourniquet was elevated to 250 mmHg. Attention was turned to the left foot 5th metatarsal head where there was a open ulceration laterally this was ellipsed sized out. This was taken down through full-thickness to the bone the sinus ulcer was excised and removed. Next the 5th metatarsal head was then exposed the TTS saw was used to excise the 5th metatarsal head with care planning both laterally and plantarly to remove any remaining prominences. Then the wound was thoroughly irrigated. The 5th metatarsal head was sent for microbiology. A rasp was used to smooth any edges. Once this thoroughly irrigated instruments were changed and deep closure was performed with 2-0 PDS suture followed by 4-0 Monocryl and 3-0 nylon suture. Tourniquet was released prior to final closure. Hemostasis was achieved. 20 cc of 0.25% Marcaine with epinephrine was used for local anesthetic. A sterile dressing was placed with Xeroform gauze and Blas wrap and an Juliano. Drapes removed. The patient was woke n from anesthesia and taken to recovery room in good condition there were no immediate complications from this procedure. Counts were correct. Complications: none Post-operative Condition: stable Disposition: PACU Plan for aftercare: Weightbear as tolerated in the offloading shoe. Keep dressing clean dry and intact. Follow-up next scheduled appointment in 2-3 weeks for suture and incision evaluation.
== END 2022-11-11 17:18 | disposition home or self-care (01) ==
PROVIDERS: PCP Family Medicine; Referring Provider Orthopaedic Surgery Foot and Ankle Surgery; Visit Provider Orthopaedic Surgery Foot and Ankle Surgery
PROC: (CPT 28113; principal; 2022-11-11 14:45)
DX: E11.621 Type 2 diabetes mellitus with foot ulcer (principal); M86.8X7 Other osteomyelitis, ankle and foot; L97.424 Non-pressure chronic ulcer of left heel and midfoot with necrosis of bone; I10 Essential (primary) hypertension; M21.622 Bunionette of left foot; E78.5 Hyperlipidemia, unspecified; Z79.84 Long term (current) use of oral hypoglycemic drugs
CPT/HCPCS: 28113; 82962; 87070; 87075; 87077; 87205; J0690; J1100; J2250; J2405; J2704; J3010

== ENCOUNTER → 2023-07-07 | Outpatient (CLI) | payer OTHER, SELFPAY | LOC: PHYS 11:07 | PROVIDERS: Family Provider Family Medicine; PCP Family Medicine; Referring Provider Student in an Organized Health Care Education/Training Program; Visit Provider Student in an Organized Health Care Education/Training Program | DX: E11.40 Type 2 diabetes mellitus with diabetic neuropathy, unspecified (principal) ==